=== PATIENT | male | born 1985 | race American Indian/Alaskan Native ===

== ENCOUNTER 2023-07-21 04:12 | Inpatient (IN) | payer OTHER, MEDICAID, MEDICARE, SELFPAY ==
[2023-07-21] VITALS (10 sets, daily range): BP systolic 153–197; BP diastolic 89–123; PULSE 82–93; RESP 17–95; TEMP 36.6–37.8; O2SAT 93–97
--- NOTE | 2023-07-21 05:04 | XR_ITS ---
Examination: CT abdomen and pelvis without contrast. Coronal 3-D reconstructions. Sagittal 2-D reconstructions. Date and time of exam: July 21, 2023 0525 hours INDICATIONS: Bilateral flank pain abdominal distention this week, history renal failure and dialysis for years CTDI: vol (mGy): 10.21 DLP: (mGycm): 664 Technique: Axial images of the abdomen have been obtained, 3 mm slice thickness Intravenous contrast material has not been administered. Low dose protocols were performed. One or more of the following dose reduction techniques were used; automated exposure control, adjustment of the mA and/or KV according to patient size, use of iterative reconstruction technique. Findings: Significant ascites Liver mildly irregular in contour no focal liver lesions No splenomegaly No pancreatic or adrenal mass End-stage atrophic [place] kidneys Absent gallbladder Mild small bowel ileus No definite obstruction Colonic diverticulosis Contracted urinary bladder Transverse prostate dimension 5 cm Moderate osteopenia IMPRESSION: Significant ascites Primary hepatocellular disease End-stage atrophic [place] kidneys
--- NOTE | 2023-07-21 05:05 | PD.EDRME ---
Rapid Medical Screening Exam [facility] Arrival date/time: 07/21/23 04:12 37M with history of ESRD (MWF) presents to ED with several days of worsening ab pain/fullness and N/V. Chief Complaint: Abdominal Pain Vital signs: Vital Signs Temperature 100.1 F 07/21/23 04:47 Pulse Rate 85 07/21/23 04:47 Respiratory Rate 17 07/21/23 04:47 Blood Pressure 171/89 H 07/21/23 04:47 Pulse Oximetry (%) 97 07/21/23 04:47
--- NOTE | 2023-07-21 05:53 | PRELIM_ITS ---
CT scan of the abdomen and pelvis without intravenous contrast (axial sections with sagittal, coronal and 3D reformats) July 21, 2023 at 0528 hours Clinical History: Gen abdomen pain and fullness. Tech nique: Axial sections of the abdomen and pelvis were obtained without intravenous contrast. Sagittal, coronal and 3D reformats are also provided. Comparison: December 24, 2021. Findings:There are trace b ilateral pleural effusions with bibasilar atelectasis. Both kidneys are atrophic with parenchymal thi nning, likely related to renal failure or chronic renal parenchymal disease. There is a 1 cm right re nal cortical cyst at the interpolar region. Nonspecific perinephric fat stranding is noted bilaterall y. No evidence of renal/ureteric calculus or hydroureteronephrosis. The gallbladder is surgically abs ent. No significant biliary ductal dilatation. The liver, pancreas, spleen and adrenals are unremarka ble on this noncontrast study.There are multiple colonic diverticula without evidence of diverticulit is. No evidence of bowel obstruction. The appendix is within normal limits (images [id number]). Ther e is severe ascites in the abdomen and pelvis. There is generalized anasarca of the abdominal and pel antelmo wall. There are subcentimeter mesenteric and retroperitoneal lymph nodes. There is diffuse omenta l fat stranding in the anterior abdomen.The urinary bladder is partially distended. The prostate is m ildly enlarged. No free air or fluid collection.Degenerative changes are identified in the spine. The re is disc osteophyte complex at L5-S1 causing mild spinal canal narrowing. Impression:1. Severe asci albino, likely related to renal failure. 2. Chronic renal parenchymal disease. No evidence of obstructiv e uropathy.3. No evidence of bowel obstruction or acute diverticulitis. Report Electronically Signed By: NASIMA DEL REAL 07/21/2023 5:52:58 AM [EST]
[2023-07-21 06:31] LABS: Collection Type, Urine Clean Catch
[2023-07-21 06:42] LABS: Lactate (Lactic Acid) 0.6 mMol/L (0.4-2.0)
[2023-07-21 06:47] LABS: Basophils # (Auto) 0.1 Thou/mm3 (0.0-0.2); Basophils % (Auto) 1 % (0-2.5); Eosinophils # (Auto) 0.2 Thou/mm3 (0.0-0.5); Eosinophils % (Auto) 2 % (0-10); Hematocrit 28.7 % (41.0-53.0); Immature Granulocytes % (Auto) 1 % (0-0); Immature Granulocytes Auto 0.08 Thou/mm3 (0.00-0.00); Lymphocytes # (Auto) 1.2 Thou/mm3 (1.0-4.8); Lymphocytes % (Auto) 9 % (10-50); Mean Corpuscular HGB Conc 34.8 g/dl (31.0-37.0); Mean Corpuscular Hemoglobin 30.3 pg (25.0-35.0); Mean Corpuscular Volume 87 fL (80-100); Monocytes # (Auto) 1.7 Thou/mm3 (0.0-0.8); Monocytes % (Auto) 13 % (0-12); Neutrophils # (Auto) 10.4 Thou/mm3 (1.8-7.7); Neutrophils % (Auto) 76 % (37-80); Nucleated Red Blood Cell % 0 /100 WBC (0); Platelet Count 518 Thou/mm3 (140-440); RDW Standard Deviation 44.2 fL (35.1-43.9); White Blood Count 13.8 Thou/mm3 (3.8-10.6)
--- NOTE | 2023-07-21 06:49 | PC.NURSE ---
pt to er with c/o of abd pain n/v x5 days, pt states he went to dialysis on wednesday and informed them of pain, per pt was told to come to er if pain did not improve after dialysis. pt states he feels like kidney's are pulsating. pt is a/ox3 gcs 15, call light within reach bed at lowest position, chart up for review, awaiting new orders at this time.
[2023-07-21 06:57] LABS: INR 1.2 (0.9-1.3); Prothrombin Time 12.6 Seconds (9.0-12.2)
--- NOTE | 2023-07-21 06:59 | PD.EDABDPN ---
ED Abdominal Pain RME/HPI General Chief Complaint: Abdominal Pain Stated complaint: Abd swollen Thurs,feels like kidneys are beating Time seen by provider: 07/21/23 07:07 Arrival date/time: 07/21/23 04:12 RME / HPI RME / HPI narrative: 07/21/23 04:12 37M with history of ESRD (MWF) presents to ED with several days of worsening ab pain/fullness and N/V. DR. FAJARDO MAIN ED EVALUATION 37 year old male with history of hypertension and ESRD on HD M/W/F presents to the ED for complaint of abdominal pain beginning 6 days ago. Describes pain as a fullness throbbing sensation, rated as moderate-severe. Accompanied by it feels like theres a heartbeat in my kidney , abdominal distention, nausea, decreased appetite, chills, and sweats. Mentioned he did not go to his scheduled dialysis today secondary to pain. Denies checking his temperature at home, chest pain, shortness of breath, cough, diarrhea. [employer]ist: Dr. Frautso in [place], [place] Related Data Home Medications ?Medication ?Instructions ?Recorded ?Confirmed omeprazole 20 mg capsule,delayed 20 mg PO QDAY 12/10/21 09/19/22 release clonidine HCl 0.2 mg tablet 0.2 mg PO BID 08/31/22 09/19/22 metoprolol tartrate 100 mg tablet 100 mg PO BID 08/31/22 09/19/22 Allergies Allergy/AdvReac Type Severity Reaction Status Date / Time No Known Allergies Allergy Verified 11/28/22 07:52 Review of Systems Review of Systems Narrative Review of Systems: Gen: +chills, +sweats, no weight loss EYES: No discharge, no visual changes, no pain HEENT: No ear pain, no congestion, no sore throat PULM: no shortness of breath, no cough, no congestion CV: No chest pain, no palpitations, no chest tightness GI: +nausea, +vomiting, no diarrhea, +pain, +distention, no constipation : No frequency, no urgency,? no dysuria Musc/skel: No joint pain, no back pain Skin: No rash, no ecchymosis, no lesions Neuro: No weakness, no headache Past Medical History Past Medical History CARDIAC: Positive Cardiac Disorders and Hypertension RESPIRATORY: Positive Asthma and Sleep Apnea GASTROINTESTINAL: Positive Gastrointestinal Disorders, Gall Bladder Disease and Gastroesophageal Reflux Disease GENITOURINARY: Positive Genitourinary Disorders, Renal Disease and Dialysis OTHER HISTORY: Positive Hospitalization and Chicken Pox Family History FAMILY HISTORY: Negative Family Psychiatric Problems, Family Respiratory Disorders, Family Cardiac Disorders, Family Gastrointestinal Problems, Family Cancer, Family Surgery or Family Anesthesia Reaction Surgical History SURGICAL: Positive Vascular Surgery and Endocrine Surgery Social History SMOKING STATUS: Never smoker ED Exam Narrative Physical exam: GENERAL APPEARANCE: AxOx4, no obvious distress, chronically ill appearing, ashen skin HEENT: NC, AT. MMM. EOMI, clear conjunctiva, oropharynx clear. NECK: Supple without lymphadenopathy. No stiffness or restricted ROM. HEART: Normal rate and regular rhythm, normal S1/S1, no m/r/g LUNGS: CTAB, moving air well. No crackles or wheezes are heard. ABDOMEN: Fluid distention, diffusely tender, no rebound no guarding, soft, good bowel sounds heard. BACK: No midline C/T/L spine pain or deformity, No CVAT, no obvious deformity. EXTREMITIES: Without cyanosis, clubbing or edema. MUSCULOSKELETAL: FROM of all major joints, no chest tenderness NEUROLOGICAL: Grossly nonfocal. Alert and oriented, moving all 4 extremities. CN not formally tested but appear grossly intact. Skin: Ashen skin. Warm and dry without any rash. Course Course Course Narrative: Patient made clinically stable emerged part without acute distress. He remained hungry throughout his stay here. He noted significant improvement in pain subjectively after removal of 4.7 L of ascitic fluid. He still had diffuse abdominal tenderness on exam and palpation even after removal of the ascitic fluid. We reviewed all results, analysis, management, and treatment plan patient was amenable to admission. Patient was stable upon admission Quality Measures none Orders Category Date Time Status Decision to Admit X1 Care 07/21/23 16:50 Active Insert IV NOW Care 07/21/23 05:[address] abdomen pelvis wo con Stat Exams 07/21/23 05:04 Completed US paracentesis abd w/image Stat Exams 07/21/23 07:08 Completed Albumin, Peritoneal Fluid Routine Lab 07/21/23 15:17 Completed Amylase,Peritoneal Fluid Routine Lab 07/21/23 15:17 Completed Blood Culture (Lab) Stat Lab 07/21/23 07:02 Received Body Fld Cult w Eve & Gram St Routine Lab 07/21/23 15:17 Received CBC Stat Lab 07/21/23 06:34 Completed CMP [Comprehensive Metabolic Panel] Stat Lab 07/21/23 06:34 Completed Glucose,Peritoneal Fluid Routine Lab 07/21/23 15:17 Completed INR [Prothrombin Time with INR] Stat Lab 07/21/23 06:34 Completed LDH,Peritoneal Fluid Routine Lab 07/21/23 15:17 Completed Lactate (Lactic Acid) Stat Lab 07/21/23 06:34 Completed Lipase Stat Lab 07/21/23 06:34 Completed PTT [Partial Thromboplastin Time] Stat Lab 07/21/23 06:34 Completed Peritoneal Cell Cnt/Diff Routine Lab 07/21/23 15:17 Completed Procalcitonin Stat Lab 07/21/23 06:34 Completed Protein Total,Peritoneal Fluid Routine Lab 07/21/23 15:17 Completed UA [Urinalysis] Stat Lab 07/21/23 06:03 Completed LIDO 1% 10ml SYR (Angio Only) [Xylocaine 1% 10ml] Med 07/21/23 12:35 Discontinued 10 ml .ROUTE .STK-MED ONE cefTRIAXone [Rocephin] 2 gm Med 07/21/23 15:45 Discontinued Sodium Chloride 0.9% (P) [Ns 0.9% (P)] 50 ml IV X1 Reevaluation(s) Reevaluation #1: Patient reports feeling improved but is still having abdominal pain. The ascitic fluid is very dark, Noam-Aid colored and cloudy. Will empirically start ceftriaxone 2 g IV, I have contacted the pharmacy and the cefotaxime is not available at [facility]. Pending ascitic fluid analysis. Time: 15:00 Reevaluation #2: Fluid analysis suggests SBP. Time: 16:30 Vital Signs Vital signs: Vital Signs Temperature 100.1 F 07/21/23 04:47 Pulse Rate 85 07/21/23 04:47 Respiratory Rate 17 07/21/23 04:47 Blood Pressure 171/89 H 07/21/23 04:47 Pulse Oximetry (%) 97 07/21/23 04:47 Pulse ox is 97% on room air which is adequate. Abdominal Pain MDM MDM Narrative MDM Narrative:: Mr. Dang has end-stage renal disease and large volume ascitic accumulation that appears to be infected consistent with spontaneous bacterial peritonitis. Symptomatically he feels better after large-volume removal of ascitic fluid. he will need treatment based off of diagnostic results are consistent with greater than 1500 WBCs in his ascitic fluid analysis at approximately 45% polys. Patient was started on antibiotics empirically after I was able to visualize/qualify the ascitic fluid from interventional radiology and his continued pain with palpation even after removal of total 4.7 L of infected looking ascitic fluid. IReina am scribing for and in the presence of Dr. Fajardo. Patient data External records reviewed:: [facility] previous records (I reviewed ED visit on 11/28/2022 for AV fistula complications ) Clinical information provided by:: patient Social determinants that could affect healthcare access:: none Patient has the following chronic illnesses:: Hypertension and ESRD on HD M/W/F How is presenting disease/condition affected by chronic disease/condition?: exacerbated by Evaluation data The following diagnostics were reviewed and interpreted by me:: lab results and radiology exam(s) Lab and/or radiology exams considered but not ordered:: None Interpretation Summary: Ordering Physician: Alessandro Comer PA-C Date of Service: 07/21/23 Procedure(s): CT abdomen pelvis wo con Accession Number(s): [id number] cc: Esau(Feliciano)Tiffanie PA-C; Cleve Cai MD; Alessandro Comer PA-C~ Examination: CT abdomen and pelvis without contrast. Coronal 3-D reconstructions. Sagittal 2-D reconstructions. Date and time of exam: July 21, 2023 0525 hours INDICATIONS: Bilateral flank pain abdominal distention this week, history renal failure and dialysis for years CTDI: vol (mGy): 10.21 DLP: (mGycm): 664 Technique: Axial images of the abdomen have been obtained, 3 mm slice thickness Intravenous contrast material has not been administered. Low dose protocols were performed. One or more of the following dose reduction techniques were used; automated exposure control, adjustment of the mA and/or KV according to patient size, use of iterative reconstruction technique. Findings: Significant ascites Liver mildly irregular in contour no focal liver lesions No splenomegaly No pancreatic or adrenal mass End-stage atrophic [place] kidneys Absent gallbladder Mild small bowel ileus No definite obstruction Colonic diverticulosis Contracted urinary bladder Transverse prostate dimension 5 cm Moderate osteopenia IMPRESSION: Significant ascites Primary hepatocellular disease End-stage atrophic [place] kidneys Dictated By: Cleve Cai MD Signed By: <Electronically signed by Cleve Cai MD in [place]> 07/21/23 0913 Ordering Physician: Matthew Fajardo MD Date of Service: 07/21/23 Procedure(s): US paracentesis abd w/image Accession Number(s): [id number] cc: Tiffanie Cifuentes PA-C ([facility]); Matthew Fajardo MD; Cleve Cai MD~ Examination: Ultrasound-guided paracentesis Abdominal sonogram limited Date and time of exam: July 21, 2023 1254 hours INDICATIONS: Cirrhosis, increasing ascites and abdominal distention this week Informed consent provided. A timeout was completed verifying correct patient, procedure, site, positioning, and special adequate movement if applicable. Technique: Multiple sonographic images of the abdomen have been obtained. Appropriate area for paracentesis was marked. Local anesthesia is obtained with 1% lidocaine. Yueh catheter is successfully introduced. Findings: Abdominal sonographic images demonstrate sufficient ascitic fluid for paracentesis. After placing the Yueh catheter, 4700 cc of fluid were successfully removed. During and after completion of the procedure the patient appear in satisfactory and stable condition with no complications observed. Estimated blood loss 0 cc Impression: Abdominal ascites Successful ultrasound-guided paracentesis as described above Dictated By: Cleve Cai MD Signed By: <Electronically signed by Cleve Cai MD in [place]> 07/21/23 1444 Medications / Prescriptions Medications or Prescriptions considered but not ordered:: None Medication administrations:: Medication Administration History Discontinued Medications Ceftriaxone Sodium 2 gm/ (Sodium Chloride) 50 mls @ 100 mls/hr IV X1 ONE Stop: 07/21/23 16:14 Last Infusion: 07/21/23 16:45 Dose: Infused Documented By: Admin: 07/21/23 16:09 Dose: 100 mls/hr Documented By: SR Lidocaine HCl (Lidocaine 1% 10 Ml Syringe (Angio Pyxis Only)) Confirm Administered Dose 10 ml .ROUTE .STK-MED ONE Stop: 07/21/23 12:36 See above Consultations Consultation(s) initiated? (list below): No Diagnosis Differential diagnosis abdominal pain: abdominal pain and other (Spontaneous bacterial peritonitis, ascites ) Most likely diagnosis given after review of the tests above:: Spontaneous bacterial peritonitis, end-stage renal disease Admission Indicated Admission indicated?: indicated Admission Request Was there a request for admission?: Yes Admission Attestation Admission request attestation: Discussed case with [Dr. Shaw] from Hospitalist service regarding admission. Discussed patients ED course, exam findings, labs, and radiology results. The Hospitalist [agrees] to accept the patient for admission. Disposition Plan Disposition Plan: Admit Critical Care Time Critical Care Time Critical Care Time: Yes Total Critical Care Time (min.): 35 Attestation: Excluding billable procedures for the right response, analysis, management, treatment, and documentation event the very possible risk of cardiovascular decompensation and or Discharge Plan Plan Patient Disposition: Admit Acute Care w/in Hospital Prescriptions/Referrals Prescriptions/Med Rec: No Action omeprazole 20 mg capsule,delayed release(DR/EC) 20 mg PO QDAY metoprolol tartrate 100 mg tablet 100 mg PO BID Patient Comments: TAKE 1 TABLET BY MOUTH TWICE A DAY WITH FOOD clonidine HCl 0.2 mg tablet 0.2 mg PO BID Patient Comments: TAKE 1 TABLET BY MOUTH TWICE A DAY Referrals: Tiffanie Cifuentes PA-C ([facility]) [Primary Care Provider] - In 1 week Problem List Clinical Impression: SBP (spontaneous bacterial peritonitis), End-stage renal disease (ESRD), Ascites Patient/Caregiver Discharge Instructions Education Materials: Paracentesis Print Language: Martiniquais Stand Alone Forms: Patient Portal Info Letter
--- NOTE | 2023-07-21 07:08 | XR_ITS ---
Examination: Ultrasound-guided paracentesis Abdominal sonogram limited Date and time of exam: July 21, 2023 1254 hours INDICATIONS: Cirrhosis, increasing ascites and abdominal distention this week Informed consent provided. A timeout was completed verifying correct patient, procedure, site, positioning, and special adequate movement if applicable. Technique: Multiple sonographic images of the abdomen have been obtained. Appropriate area for paracentesis was marked. Local anesthesia is obtained with 1% lidocaine. Yueh catheter is successfully introduced. Findings: Abdominal sonographic images demonstrate sufficient ascitic fluid for paracentesis. After placing the Yueh catheter, 4700 cc of fluid were successfully removed. During and after completion of the procedure the patient appear in satisfactory and stable condition with no complications observed. Estimated blood loss 0 cc Impression: Abdominal ascites Successful ultrasound-guided paracentesis as described above
--- NOTE | 2023-07-21 07:14 | PC.NURSE ---
Pt alert upon assumption of care, reports having discomfort in his abdomen, pt will be going for procedure. Call romo and personal belongings in reach.
[2023-07-21 07:23] LABS: Alanine Aminotransferase 9 U/L (10-49); Albumin, Serum 3.7 gm/dL (3.5-5.0); Alkaline Phosphatase 531 U/L (46-116); Anion Gap 10 (7-16); Aspartate Amino Transferase < 10 U/L (0-34); BUN/Creatinine Ratio 7 Ratio (12-20); Bilirubin,Total 2.1 mg/dL (0.3-1.2); Blood Urea Nitrogen 63 mg/dL (9-23); Calcium 8.6 mg/dL (8.3-10.6); Calcium (Corrected) 8.8 mg/dL (8.5-10.1); Carbon Dioxide 26.9 mMol/L (20.0-31.0); Chloride 98 mMol/L (98-107); Creatinine (Component) 9.2 mg/dL (0.6-1.3); Globulin 3.8 gm/dL (2.3-3.5); Glucose 87 mg/dL (74-106); Lipase 37 U/L (12-53); Osmolality,Calculated 287 (275-295); Potassium 4.2 mMol/L (3.4-5.1); Procalcitonin 3.88 ng/ml (0.0-0.49); Sodium 135 mMol/L (136-145); Total Protein 7.5 gm/dL (5.7-8.2); eGFR 7 See Note
[2023-07-21 07:28] LABS: Bilirubin,Urine Negative (Negative); Blood,Urine Negative (Negative); Clarity,Urine Clear (Clear/Hazy); Color,Urine Lt-Yellow (Lt Yel-Yel); Glucose, Urine Negative (Negative); Ketones,Urine Negative (Negative); Leukocyte Esterase,Urine Negative (Negative); Nitrite,Urine Negative (Negative); PH,Urine 7.5 (5.0-7.0); Protein,Urine 1+ (Neg - Trace); RBC,Urine 1 /hpf (0-3); Specific Gravity,Urine 1.005 (1.001-1.035); Squamous Epithelial Cell,Urine < 1 /hpf (0-5); Urobilinogen,Urine Negative mg/dL (0.0-1.0); WBC,Urine < 1 /hpf (0-5)
--- NOTE | 2023-07-21 11:58 | PC.NURSE ---
Pt resting w/eyes closed, even rise and fall of chest w/breathing. VSS on tele. call romo remains in reach.
--- NOTE | 2023-07-21 15:43 | PC.NURSE ---
Pt medicated for pain and nausea. Family remains at bedside attentive to pt, VSS on tele. Call romo remains in reach
[2023-07-21 15:53] LABS: Peritoneal Fluid WBC 1560 /cmm
[2023-07-21] MEDS: cefTRIAXone 2 GM in SODIUM CHLORIDE 0.9% (P) 50 ML IV (16:09)
[2023-07-21 16:14] LABS: Peritoneal Fluid Appearance Hazy; Peritoneal Fluid Color Yellow; Peritoneal Fluid Mononuclear 54 %; Peritoneal Fluid Polynuclear 46 %; RBC,Peritoneal Fluid 1000 /cmm
[2023-07-21 16:15] LABS: Albumin, Peritoneal Fluid 2.1 gm/dL; Amylase,Peritoneal Fluid 23 IU/L; Glucose,Peritoneal Fluid 76 mg/dL; LDH,Peritoneal Fluid 148 IU/L; Protein Total,Peritoneal Fluid 4 g/dL
--- NOTE | 2023-07-21 16:56 | XR_ITS ---
Examination: Abdomen sonogram, Limited Date and time of exam: July 21, 2023 1911 hrs. Indications: Elevated bilirubin today Technique: Real-time taylor scale transabdominal sonographic images of the upper abdomen obtained. Findings: Absent gallbladder Enlarged common bile duct 0.9 cm no definite stones Pancreatic head 3.4 cm Liver 17.9 cm lobular contour no focal liver lesions Mild ascites Normal hepatopedal portal venous flow Patent IVC Impression: Enlarged common bile duct 0.9 cm no definite stones If the bilirubin is elevated, consider MRCP follow-up to exclude common bile duct stones and/or stricture Moderate hepatomegaly cirrhosis no focal liver lesions Mild ascites
--- NOTE | 2023-07-21 18:27 | ESHP_ITS ---
<Statement entered by Bob Shaw MD - 07/29/23 11:02> Attending attestation: I reviewed above note and agree with findings and plans. I have also personally examined the patient with medicine team and went over assessment and plan with medical team including pr intern and resident physician. <Statement entered by Lee Suggs MD - 07/22/23 11:57> Patient coming in with 1 week of abdominal pain discomfort. Patient had paracentesis done with peritoneal fluid appearing hazy. Patient started on Rocephin for SBP, pending culture. Will continue treating patient with IV antibiotics and await culture results. Documentation for date of: 07/21/23 HPI History of Present Illness History of present illness: Patient is 37-year-old male with past medical history of hypertension, ESRD on Wednesday/Wednesday/Wednesday, presented to ED with chief complaint of worsening abdominal pain and fullness. Discomfort started about 6 days ago, described as fullness, rated as moderate to severe. Patient also endorsed nauseia, decreased appetite, chills, sweats. Patient mentioned that he missed his scheduled dialysis today due to pain discomfort presented to ED. Otherwise patient denied any chest pain, shortness of breath or any other associated. Upon presentation patient was hypertensive with blood pressure 171/89, saturating on room air 97%. This revealed leukocytosis with WBC 13.8, anemic with hemoglobin of 10.0, 635, BUN 63, creatinine 9.2, EGFR 7, T. bili was 2.1, ALP 531, Pro-Jarek was 3.88. CT pelvis/abdomen revealed significant ascites, primary hepatocellular disease, end-stage atrophic [place] kidneys. Successful ultra-stiff paracentesis was done in ED. 4.7 liters of infected looking ascitic fluid was removed. Fluid analysis revealed WBC 1560, with PMA 54, suggestive of SBPs. Patient on ceftriaxone in ED. Patient met SIRS 2/4 criteria and was admitted for sepsis secondary to SBP's. Review of Systems Review of Systems Narrative Review of Systems: Narrative Review of Systems: GENERAL: Denies fevers/chills or diaphoresis. HEENT: Denies headache, Denies visual/hearing changes CARDIO: Denies chest pain PULM: Denies SOB MSK/EXT/SKIN: Denies joint/skeletal/muscle pain The rest of review of system is otherwise negative except what is mentioned above Past Medical History Past Medical History CARDIAC: Positive Cardiac Disorders and Hypertension RESPIRATORY: Positive Asthma (NO INHALER) GASTROINTESTINAL: Positive Gastrointestinal Disorders and Gall Bladder Disease (FOR THIS PROC) GENITOURINARY: Positive Dialysis OTHER HISTORY: Positive Chicken Pox Social History SMOKING STATUS: Never smoker Travel History EBOLA RISK: No Exam Vital Signs Temp Pulse Resp BP Pulse Ox O2 Del Method 98.9 F 89 18 164/99 H 95 Room Air 07/21/23 17:59 07/21/23 17:59 07/21/23 17:59 07/21/23 17:59 07/21/23 17:59 07/21/23 17:59 Narrative Exam GENERAL: no acute distress, AAO x3, HEENT: Head AT/ NC. Mucous membranes moist. PERRL. NECK: Supple, no lymphadenopathy, no carotid bruits. CARDIOVASCULAR: RRR. Normal S1/S2, No m/r/g. No pitting edema of bilateral LEs. RESPIRATORY: CTAB. No wheezing, rhonchi, crackles. GASTROINTESTINAL: Abdomen soft, mildlydistended, mildly tender, no palpable masses. Bowel sounds present in all 4 quadrants. MUSCULOSKELETAL:? No cyanosis or edema, no visible joint swelling.AV fistula noted on left arm NEUROLOGICAL: No focal deficits. Sensation intact, symmetric. PSYCHIATRIC: Awake and alert, not agitated, normal mood and affect. INTEGUMENTARY: No obvious rashes, no jaundice, normal turgor multiple blck spots on BL LE. Results: Labs 07/21/23 06:34 07/21/23 06:34 Labs: Short CBC 07/21/23 Range/Units 06:34 WBC 13.8 H (3.8-10.6) Thou/mm3 Hgb 10.0 L (13.5-16.0) g/dL Hct 28.7 L (41.0-53.0) % Plt Count 518 H (140-440) Thou/mm3 BMP 07/21/23 06:34 Sodium 135 L Potassium 4.2 Chloride 98 Carbon Dioxide 26.9 BUN 63 H Creatinine 9.2 H* Glucose 87 Calcium 8.6 Liver Function 07/21/23 Range/Units 06:34 Total Bilirubin 2.1 H (0.3-1.2) mg/dL AST < 10 (0-34) U/L ALT 9 L (10-49) U/L Alkaline Phosphatase 531 H (46-116) U/L Albumin 3.7 (3.5-5.0) gm/dL Urine 07/21/23 Range/Units 06:03 Urine Color Lt-Yellow (Lt Yel-Yel) Urine Clarity Clear (Clear/Hazy) Urine pH 7.5 H (5.0-7.0) Ur Specific [place] 1.005 (1.001-1.035) Urine Protein 1+ A (Neg - Trace) Urine Glucose (UA) Negative (Negative) Quality Measures Quality Measures none Medications Home Medications and Allergies Home Medications ?Medication ?Instructions ?Recorded ?Confirmed ?Type omeprazole 20 mg capsule,delayed 20 mg PO QDAY 12/10/21 09/19/22 History release clonidine HCl 0.2 mg tablet 0.2 mg PO BID 08/31/22 09/19/22 History metoprolol tartrate 100 mg tablet 100 mg PO BID 08/31/22 09/19/22 History Allergies Allergy/AdvReac Type Severity Reaction Status Date / Time No Known Allergies Allergy Verified 11/28/22 07:52 Visit Medications Acetaminophen (Acetaminophen 325 Mg Tablet) 650 mg PO Q6H PRN PRN Reason: PAIN OR FEVER > 101 Stop: 08/20/23 18:14 Heparin Sodium (Porcine) (Heparin Sod Inj 5000 Unit/Ml Vial) 5,000 unit SC Q8HR VERONICA Stop: 08/04/23 21:59 Ceftriaxone Sodium/Dextrose (Rocephin/D5w 2gm) 2 gm in 50 mls @ 100 mls/hr IV QDAY VERONICA Stop: 07/29/23 08:59 Ondansetron HCl (Ondansetron Inj 2 Mg/Ml Vial 2 Ml) 4 mg IV Q6H PRN; Protocol PRN Reason: NAUSEA OR VOMITING Stop: 08/20/23 18:14 Pantoprazole Sodium (Pantoprazole 40 Mg Tablet) 40 mg PO QDAY VERONICA Stop: 08/21/23 08:59 Discontinued Medications Ceftriaxone Sodium 2 gm/ (Sodium Chloride) 50 mls @ 100 mls/hr IV X1 ONE Stop: 07/21/23 16:14 Last Infusion: 07/21/23 16:45 Dose: Infused Assessment & Plan Plan Patient is 37-year-old male with past medical history of hypertension, ESRD on Wednesday/Wednesday/Wednesday, presented to ED with chief complaint of worsening abdominal pain and fullness. Discomfort started about 6 days ago, described as fullness, rated as moderate to severe. Patient also endorsed nauseia, decreased appetite, chills, sweats. Patient mentioned that he missed his scheduled dialysis today due to pain discomfort presented to ED. Otherwise patient denied any chest pain, shortness of breath or any other associated. Upon presentation patient was hypertensive with blood pressure 171/89, saturating on room air 97%. This revealed leukocytosis with WBC 13.8, anemic with hemoglobin of 10.0, 635, BUN 63, creatinine 9.2, EGFR 7, T. bili was 2.1, ALP 531, Pro-Jarek was 3.88. CT pelvis/abdomen revealed significant ascites, primary hepatocellular disease, end-stage atrophic [place] kidneys. Successful ultra-stiff paracentesis was done in ED. 4.7 liters of infected looking ascitic fluid was removed. Fluid analysis revealed WBC 1560, with PMA 54, suggestive of SBPs. Patient on ceftriaxone in ED. Patient met SIRS 2/4 criteria and was admitted for sepsis secondary to SBP's.. #Sepsis secondary due to SBP's #SBP #Ascites in the setting of possible liver disease s/p paracentesis #Abdominal pain, discomfort, increased abdominal girth CT abdomen/pelvis revealed significant ascites, primary hepatocellular disease. Patient had successful ultrasound-guided paracentesis in ED, 4.7 L of hazy fluid was removed, fluid analysis revealed WBC 1506 RBC 1000, PMC 54 percent, LDH 148. 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 Cr 9.2,BUN 63,eGFR 7, K wnl -nephrology was consulted, we will restart HD session in the hospital -patient will have HD early tmw -recs are appreciated #Hyperbilirubinemia #primary hepatocellular disease based on CT patient had cholecystectomy T.bill 2.1, ALT 531 US Liver pending to r/o obstruction -continue monitor #hypertension restarted home meds -clonidine 0.2 BID -Hydralazyne 100 BID -hydralazine 10 PRN -continue to monitor Disposition:medsurge DVT prophylaxis: heparin GI prophylaxis: PPi Diet: renal Lines: PIV CODE STATUS:Full code Patient care was discussed with senior resident physician and attending physician Dr. Colin Jalloh MD PGY-1 I have carefully reviewed this document. Due to imperfections in the voice software, there could be grammatical errors including phonetic/typographic errors. This in no way compromises the medical care the patient is receiving
[2023-07-21] MEDS: cloNIDine HCL 0.1 MG TABLET 0.2 MG PO (21:07)
[2023-07-21] MEDS: hydrALAZINE HCL 25 MG TABLET 100 MG PO (21:08)
[2023-07-21] MEDS: ALBUMIN HUMAN 25% IVPB 25 GM/100 ML BTL IV ×2 (21:09→23:34)
[2023-07-22] VITALS (27 sets, daily range): BP systolic 118–170; BP diastolic 71–104; PULSE 83–117; RESP 18–96; TEMP 36.6–37.4; O2SAT 94–98; BMI 23.3
[2023-07-22 05:45] LABS: Basophils # (Auto) 0.1 Thou/mm3 (0.0-0.2); Basophils % (Auto) 1 % (0-2.5); Eosinophils # (Auto) 0.3 Thou/mm3 (0.0-0.5); Eosinophils % (Auto) 2 % (0-10); Hematocrit 26.1 % (41.0-53.0); Immature Granulocytes % (Auto) 1 % (0-0); Immature Granulocytes Auto 0.09 Thou/mm3 (0.00-0.00); Lymphocytes # (Auto) 1.1 Thou/mm3 (1.0-4.8); Lymphocytes % (Auto) 9 % (10-50); Mean Corpuscular HGB Conc 33.3 g/dl (31.0-37.0); Mean Corpuscular Hemoglobin 29.7 pg (25.0-35.0); Mean Corpuscular Volume 89 fL (80-100); Monocytes # (Auto) 1.6 Thou/mm3 (0.0-0.8); Monocytes % (Auto) 13 % (0-12); Neutrophils # (Auto) 9.1 Thou/mm3 (1.8-7.7); Neutrophils % (Auto) 74 % (37-80); Nucleated Red Blood Cell % 0 /100 WBC (0); Platelet Count 583 Thou/mm3 (140-440); Red Blood Count 2.93 Miln/mm3 (4.50-5.90); White Blood Count 12.2 Thou/mm3 (3.8-10.6)
[2023-07-22 05:48] LABS: Hemoglobin 8.7 g/dL (13.5-16.0)
[2023-07-22] MEDS: HEPARIN SOD INJ 5000 UNIT/ML VIAL SC ×3 (06:16→21:27)
[2023-07-22] MEDS: ACETAMINOPHEN 325 MG TABLET 650 MG PO (06:23)
[2023-07-22 06:52] LABS: Alanine Aminotransferase < 7 U/L (10-49); Albumin, Serum 3.3 gm/dL (3.5-5.0); Alkaline Phosphatase 452 U/L (46-116); Anion Gap 11 (7-16); Aspartate Amino Transferase < 8 U/L (0-34); BUN/Creatinine Ratio 7 Ratio (12-20); Bilirubin,Total 1.8 mg/dL (0.3-1.2); Blood Urea Nitrogen 74 mg/dL (9-23); Calcium 8.4 mg/dL (8.3-10.6); Carbon Dioxide 26.5 mMol/L (20.0-31.0); Chloride 98 mMol/L (98-107); Creatinine (Component) 10.5 mg/dL (0.6-1.3); Estimated Creatinine Clearance 11.2 mL/min (>60); Globulin 3.2 gm/dL (2.3-3.5); Glucose 86 mg/dL (74-106); Magnesium 1.8 mg/dL (1.6-2.6); Osmolality,Calculated 291 (275-295); Phosphorous 6.1 mg/dL (2.4-5.1); Potassium 4.5 mMol/L (3.4-5.1); Sodium 135 mMol/L (136-145); Thyroid Stimulating Hormone 1.44 uIU/mL (0.55-4.78); Total Protein 6.5 gm/dL (5.7-8.2); eGFR 6 See Note
--- NOTE | 2023-07-22 08:00 | PC.NURSE ---
pt transferred to dialysis by Edwin MARCUM, pt stable aaox4.
--- NOTE | 2023-07-22 08:47 | PC.NURSE ---
Pt was seen and examined by Dr. Tavarez while on dialysis. MD ordered to increased UF goal to 3L as tolerated. Will monitor
[2023-07-22] MEDS: EPOETIN ALFA-EPBX INJ 10,000 UNIT/ML VIAL (ESRD) 10000 UNIT IV (09:01)
--- NOTE | 2023-07-22 09:01 | PD.RESCONSUL ---
HPI Data of Consult Patient: new to practice Consult date: 07/22/23 Requesting Physician: Bob Shaw MD Admitting Provider: Bob Shaw MD Attending Provider: Bob Shaw MD Primary Care Provider: Tiffanie Cifuentes([facility])DAVID Consult Narrative Reason for consult: ESRD requiring inpatient hemodialysis History of present illness: Mr Dang is a 37 YO M with history of hypertension and end-stage renal disease(secondary to hypertensive nephrosclerosis-under the care of Dr. Frausto in [place]) who presented to [facility] emergency department 07/21/2023 complaining of generalized swelling and worsening abdominal pain over the past week, associated with nausea, anorexia, chills and diaphoresis. The patient reports missing his Thursday 07/20 HD session due to his presenting complaint. On presentation, the patient was afebrile with temperature 100.1F, HR 89-106, RR 17-20, hypertensive 171/89mmHg. Initial labs demonstrated leukocytosis (WBC 13.8), anemia (hgb 10.0), with thrombocytosis (plt 518); chemistry remarkable for BUN 63 and sCr 9.2. LFTs with TB 2.1 and alk phos 531, AST and ALT <10. Procalcitonin elevated at 3.88. Nephrology service is consulted for management of anasarca with inpatient hemodialysis in setting of ESRD. 07/22/2023 Patient is seen on dialysis unit, resting comfortably. He is s/p 4.7L fluid removal during paracentesis and 50mg albumin replacement and broad spectrum antibiotic coverage with ceftriaxone 2g daily for spontaneous bacterial peritonitis, and reports abdominal pain is improved this morning. Peritoneal fluid analysis demonstrates 717 PMNs supporting SBP diagnosis, culture remains pending. Morning labs: WBC 12.2, Hgb 8.7, plt 583; Na 135, K 4.5, BUN 74, sCr 10.5, gluc 86. TB 1.8 and alkPhos 452. cc:: cc: Bob Shaw MD Review of Systems Review of Systems Systems Reviewed: All systems reviewed, normal except as documented Past Medical History Past Medical History NEUROLOGIC: Negative Neurological Disorders or Seizures CARDIAC: Positive Cardiac Disorders and Hypertension; Negative Congestive Heart Failure RESPIRATORY: Positive Respiratory Disorders, Asthma and Sleep Apnea; Negative Chronic Obstructive Pulmonary Disease (COPD) GASTROINTESTINAL: Positive Gastrointestinal Disorders, Gall Bladder Disease and Gastroesophageal Reflux Disease; Negative Hepatitis GENITOURINARY: Positive Genitourinary Disorders, Renal Disease and Dialysis MUSCULOSKELETAL: Negative Musculoskeletal Disorders or Carpal Tunnel Syndrome ENT: Negative Cataracts ENDOCRINE: Negative Endocrine Disorders, Diabetes Mellitus Type 1 or Diabetes Mellitus Type 2 HEMATOLOGIC: Negative Blood Disorders PSYCHO/SOCIAL: Negative Depression or Anxiety OTHER HISTORY: Positive Hospitalization and Chicken Pox; Negative Autoimmune Disease, Down Syndrome, Developmental Delay, Shingles, Falls, Blood Transfusions, Blood Transfusion Reaction, Anesthesia Reactions, Organ Transplant, Chemotherapy, Radiation Therapy, Hyperbaric Therapy, MRSA, VRSA, Vancomycin-Resistant Enterococci, Human Immunodeficiency Virus (HIV), Measles, Mumps, Rubella ([place] Measles), Pertussis, Clostridium Difficile or Cancer Family History FAMILY HISTORY: Negative Family Psychiatric Problems, Family Respiratory Disorders, Family Cardiac Disorders, Family Gastrointestinal Problems, Family Cancer, Family Surgery or Family Anesthesia Reaction Surgical History SURGICAL: Positive Abdominal Surgery; Negative Cardiac Surgery, Open Heart Surgery, Coronary Artery Bypass Graft, Valve Replacement, Vascular Surgery, Coronary Stent, Cardiac Catheterization, Pacemaker, Angiogram, Auto Implanted Cardiovert Defib, Carotid Endarterectomy, Endocrine Surgery, Thyroidectomy, Ear Surgery, Tympanostomy Tube, Eye Surgery, Nose Surgery, Oral Surgery, Tonsillectomy, Adenoidectomy, Cochlear Implant, Corneal Transplant, Throat Surgery, Tracheostomy, Gastric Bypass Surgery, Gastrostomy, Bowel Surgery, Nephrectomy, Transurethral Resection, Joint Replacement, Amputation, Open Reduction Internal Fixation, Arthroscopy, Neurologic Surgery, Brain Shunt, Mastectomy, Lumpectomy, Hysterectomy, Tubal Ligation, Section, Vasectomy or Organ Transplant Social History SMOKING STATUS: Never smoker Travel History EBOLA RISK: No Exam Vital Signs Temp Pulse Resp BP Pulse Ox O2 Del Method 98.9 F 92 18 160/93 H 96 Room Air 07/22/23 07:39 07/22/23 08:45 07/22/23 08:40 07/22/23 08:45 07/22/23 07:39 07/22/23 04:00 Narrative Exam General: AAO. NAD. Appears stated age. Currently seen on dialysis HEENT: NC,AT. EOMI grossly intact. MMM. Neck: Supple. Trachea is midline. Chest: Symmetric chest expansion. Cardiac: RRR. Normal S1 and S2. No M/R/G. Resp: No increased work of breathing. No adventitious lung sounds. Abd: Soft, mildly tender diffusely, mildly distended. Extrem: Atraumatic in appearance without deformity. AVF LUE. Skin: Warm, dry. Left AV fistula cannulated Neuro: AAO. Moves all 4. No deficit of speech. CNII-XII grossly intact. Psych: Appropriate mood with reactive and congruent affect. Results Labs 07/24/23 04:58 07/24/23 04:58 Labs: Short CBC 07/22/23 Range/Units 04:31 WBC 12.2 H (3.8-10.6) Thou/mm3 Hgb 8.7 L (13.5-16.0) g/dL Hct 26.1 L (41.0-53.0) % Plt Count 583 H D (140-440) Thou/mm3 BMP 07/22/23 04:31 Sodium 135 L Potassium 4.5 Chloride 98 Carbon Dioxide 26.5 BUN 74 H Creatinine 10.5 H* D Glucose 86 Calcium 8.4 Liver Function 07/22/23 Range/Units 04:31 Total Bilirubin 1.8 H (0.3-1.2) mg/dL AST < 8 (0-34) U/L ALT < 7 L (10-49) U/L Alkaline Phosphatase 452 H D (46-116) U/L Albumin 3.3 L (3.5-5.0) gm/dL Quality Measures Quality Measures none Medications Home Medications and Allergies Home Medications ?Medication ?Instructions ?Recorded ?Confirmed ?Type omeprazole 20 mg capsule,delayed 20 mg PO QDAY 12/10/21 07/21/23 History release clonidine HCl 0.2 mg tablet 0.2 mg PO BID 08/31/22 07/21/23 History metoprolol tartrate 100 mg tablet 100 mg PO BID 08/31/22 07/21/23 History hydralazine 100 mg tablet 100 mg PO BID 07/21/23 07/21/23 History Allergies Allergy/AdvReac Type Severity Reaction Status Date / Time No Known Allergies Allergy Verified 11/28/22 07:52 Visit Medications Acetaminophen (Acetaminophen 325 Mg Tablet) 650 mg PO Q6H PRN PRN Reason: PAIN OR FEVER > 101 Stop: 08/20/23 18:14 Last Admin: 07/22/23 06:23 Dose: 650 mg Clonidine (Clonidine Hcl 0.1 Mg Tablet) 0.2 mg PO BID VERONICA Stop: 08/20/23 20:59 Last Admin: 07/21/23 21:07 Dose: 0.2 mg Heparin Sodium (Porcine) (Heparin Sod Inj 5000 Unit/Ml Vial) 5,000 unit SC Q8HR VERONICA Stop: 08/04/23 21:59 Last Admin: 07/22/23 06:16 Dose: 5,000 unit Hydralazine HCl (Hydralazine Inj 20 Mg/Ml Vial) 10 mg IV Q6H PRN PRN Reason: hypertension Stop: 08/20/23 18:44 Hydralazine HCl (Hydralazine Hcl 25 Mg Tablet) 100 mg PO BID VERONICA Stop: 08/20/23 20:59 Last Admin: 07/21/23 21:08 Dose: 100 mg Ceftriaxone Sodium 2 gm/ (Sodium Chloride) 50 mls @ 100 mls/hr IV QDAY VERONICA Stop: 07/29/23 08:59 Ondansetron HCl (Ondansetron Inj 2 Mg/Ml Vial 2 Ml) 4 mg IV Q6H PRN; Protocol PRN Reason: NAUSEA OR VOMITING Stop: 08/20/23 18:14 Pantoprazole Sodium (Pantoprazole 40 Mg Tablet) 40 mg PO QDAY [facility] Stop: 08/21/23 08:59 Discontinued Medications Epoetin Keith (Epoetin Keith-Epbx Inj 10,000 Unit/Ml Vial (Esrd)) 10,000 unit IV X1 ONE Stop: 07/22/23 09:01 Ceftriaxone Sodium 2 gm/ (Sodium Chloride) 50 mls @ 100 mls/hr IV X1 ONE Stop: 07/21/23 16:14 Last Infusion: 07/21/23 16:45 Dose: Infused Albumin Human (Albuminar-25 Ivpb) 25 gm in 100 mls @ 100 mls/hr IV Q1H VERONICA Stop: 07/21/23 20:29 Last Admin: 07/21/23 23:34 Dose: 100 mls/hr Assessment & Plan Plan Mr Dang is a 37 YO M hx HTN and ESRD and likely new diagnosis of liver disease who presents with ascites and likely SBP, admitted for management of same. S/p paracentesis 07/20 with >700 PMNs, culture pending. On broad spectrum coverage with ceftriaxone 2g daily. Nephrology is consulted for management of inpatient HD and patient's fluid overload. #Anasarca / abdominal ascites #Sepsis #Spontaneous bacterial peritonitis, pending culture #Likely newly dx liver cirrhosis CT Abd/pelvis demonstrated significant ascites, liver mildly irregular in contour no focal liver lesions. Liver US demonstrated enlarged common bile duct 0.9 cm no definite stones and moderate hepatomegaly, cirrhosis, no focal liver lesions s/p paracentesis with 4.7L fluid removal and replacement of 50g albumin 07/20. pending fluid culture, blood cultures NG@24h. on ceftriaxone 2g daily broad spectrum empiric coverage. MELD-Na 26 points portends 14-15% estimated 90-day mortality. MDF 11.3 and GAHS 6 are reassuring prognostically for possible hepatitis. - We will manage fluid status with HD, ultrafiltrate removal goal of 2.5-3L today as patient can tolerate. - Continue rest of SBP management as per primary team. #ESRD on HD M/W/ #Hyperphosphatemia Missed regularly scheduled Wednesday session on 07/20 - Make-up HD session this morning, planning UF goal -2.5 to -3L given ascites. Will continue regularly scheduled M// schedule tomorrow. - Renally dose medications - Strictly monitor I/Os - If patient has residual urine ouput, avoid nephrotoxic agents - Daily renal panel #Chronic normocytic anemia secondary to ESRD - epoetin keith 10,000u given today during HD #Hypertension - Continue home regimen and monitor patient's BP Thank you for allowing us to participate in this patient's care. The patient was seen, examined, and discussed with attending checker bakery products Dr Corby Venegas PGY1 Attending Provider Attestation/Addendum Patient currently seen and examined with resident physician Dr. Venegas. Note reviewed, agree with findings and recommendations. Patient currently seen on dialysis. Tolerating dialysis without any problems. Hemodialysis for 3 hours, 2K, ultrafiltration 2-3 L, Epogen 6000, no heparin ordered. Plan of care discussed with the dialysis nurse. Please see dialysis flowsheet for further details. Blood pressure on the higher side. He seems to be very fatigued and tired. Medication, labs reviewed. Thank you Dr. Shaw for allowing me to participate in the care of Mr. Dang
[2023-07-22 09:20] LABS: Hepatitis A Antibody IgM Non Reactive (Non React); Hepatitis B Core Antibody IgM Non Reactive (Non React); Hepatitis B Surface Ab Reactive (Immune) (Immune); Hepatitis B Surface Antigen Non Reactive (Non React); Hepatitis C Antibody Non Reactive (Non React)
[2023-07-22] MEDS: hydrALAZINE HCL 25 MG TABLET 100 MG PO ×2 (12:04→20:45)
[2023-07-22] MEDS: cloNIDine HCL 0.1 MG TABLET 0.2 MG PO ×2 (12:05→20:45)
[2023-07-22] MEDS: PANTOPRAZOLE 40 MG TABLET PO (12:06)
[2023-07-22] MEDS: cefTRIAXone 2 GM in SODIUM CHLORIDE 0.9% (P) 50 ML IV (12:06)
--- NOTE | 2023-07-22 12:28 | PC.NURSE ---
Dialysis completed for 3 hrs, tolerated well. Pt awake, A/O x4, no complaint of pain. Respiration even and unlabored O2 sat 98% room air. Able to removed 2800 ml of fluid net. Post tx BP 166/98, HR 90, Temp 98.7. Pt back in his room. Call light within reached. Pressure dressing on left upper arm AV fistula clean/dry/intact. No bleeding. Please remove pressure dressing around 1330. Report given to La MARCUM.
--- NOTE | 2023-07-22 12:34 | ESPR_ITS ---
<Statement entered by Bob Shaw MD - 07/29/23 11:03> Attending attestation: I reviewed above note and agree with findings and plans. I have also personally examined the patient with medicine team and went over assessment and plan with medical team including internet sales manager and resident physician. <Statement entered by Lee Suggs MD - 07/22/23 14:39> Patient seen and assessed at bedside during dialysis. Patient currently feeling slightly better and only has abdominal fullness at this time. Patient reports having kidney disease since . Patient unsure when liver disease began. Team will try and obtain medical records from PCP. Will continue with IV Rocephin for now for SBP. Pending cultures. Documentation for date of: 07/22/23 Subjective Subjective Interval history: Patient was seen and examined at bedside. No acute overnight events. Early in AM patient had HD . Waiting for peritoneal fluid cultures, BC -in 24 hours. Continue treatment with Abx, follow up with culture. US liver did not reveal any obstraction,Enlarged common bile duct 0.9 cm no definite stones, showed mild cirrhosis, will request records from PCP. Exam Vital Signs Temp Pulse Resp BP Pulse Ox O2 Del Method 98.7 F 91 18 166/98 H 98 Room Air 07/22/23 10:48 07/22/23 12:05 07/22/23 10:48 07/22/23 12:05 07/22/23 10:48 07/22/23 04:00 Narrative Exam GENERAL: no acute distress, AAO x3, HEENT: Head AT/ NC. Mucous membranes moist. PERRL. NECK: Supple, no lymphadenopathy, no carotid bruits. CARDIOVASCULAR: RRR. Normal S1/S2, No m/r/g. No pitting edema of bilateral LEs. RESPIRATORY: CTAB. No wheezing, rhonchi, crackles. GASTROINTESTINAL: Abdomen soft, mildlydistended, mildly tender, no palpable masses. Bowel sounds present in all 4 quadrants. MUSCULOSKELETAL:? No cyanosis or edema, no visible joint swelling.AV fistula noted on left arm NEUROLOGICAL: No focal deficits. Sensation intact, symmetric. PSYCHIATRIC: Awake and alert, not agitated, normal mood and affect. INTEGUMENTARY: No obvious rashes, no jaundice, normal turgor multiple black spots on BL LE. Objective Labs 07/22/23 04:31 07/22/23 04:31 Labs: Laboratory Results - last 24 hr 07/21/23 07/22/23 07/22/23 15:17 04:31 08:05 WBC 12.2 H RBC 2.93 L Hgb 8.7 L Hct 26.1 L MCV 89 MCH 29.7 MCHC 33.3 RDW Std Deviation 46.0 H Plt Count 583 H D Neut % (Auto) 74 Lymph % (Auto) 9 L [place] % (Auto) 13 H Eos % (Auto) 2 Baso % (Auto) 1 Neut # (Auto) 9.1 H Lymph # (Auto) 1.1 [place] # (Auto) 1.6 H Eos # (Auto) 0.3 Baso # (Auto) 0.1 Immature Gran # (Auto) 0.09 H Absolute Nucleated RBC 0.00 Immature Gran % 1 H Nucleated RBC % 0 Sodium 135 L Potassium 4.5 Chloride 98 Carbon Dioxide 26.5 Anion Gap 11 BUN 74 H Creatinine 10.5 H* D Estim Creat Clear Calc 11.2 L eGFR 6 L* BUN/Creatinine Ratio 7 L Glucose 86 Calculated Osmolality 291 Calcium 8.4 Corrected Calcium 9.0 Phosphorus 6.1 H Magnesium 1.8 Total Bilirubin 1.8 H AST < 8 ALT < 7 L Alkaline Phosphatase 452 H D Total Protein 6.5 Albumin 3.3 L Globulin 3.2 Albumin/Globulin Ratio 1.0 L TSH 1.44 Peritoneal Color Yellow Peritoneal Appearance Hazy Peritoneal WBC 1560 Peritoneal RBC 1000 Periton Polynucl WBCs 46 Periton Mononucl WBCs 54 Peritoneal Tot Protein 4 Peritoneal Albumin 2.1 Peritoneal LDH 148 Peritoneal Glucose 76 Peritoneal Amylase 23 Hepatitis A IgM Ab Non Reactive Hep Bs Antigen Non Reactive Hep Bs Antibody Reactive (Immune) Hep B Core IgM Ab Non Reactive Hepatitis C Antibody Non Reactive Quality Measures Quality Measures none Assessment & Plan Assessment Current Active Medications: Generic Name Dose Route Start Last Admin Trade Name Freq PRN Reason Stop Dose Admin Acetaminophen 650 mg 07/21/23 18:15 07/22/23 06:23 Acetaminophen 325 Mg Tablet PO 08/20/23 18:14 650 mg Q6H PRN Administration PAIN OR FEVER > 101 Clonidine 0.2 mg 07/21/23 21:00 07/22/23 12:05 Clonidine Hcl 0.1 Mg Tablet PO 08/20/23 20:59 0.2 mg BID VERONICA Administration Heparin Sodium (Porcine) 5,000 unit 07/21/23 22:00 07/22/23 06:16 Heparin Sod Inj 5000 Unit/Ml Vial SC 08/04/23 21:59 5,000 unit Q8HR VERONICA Administration Hydralazine HCl 10 mg 07/21/23 18:32 Hydralazine Inj 20 Mg/Ml Vial IV 08/20/23 18:44 Q6H PRN hypertension Hydralazine HCl 100 mg 07/21/23 21:00 07/22/23 12:04 Hydralazine Hcl 25 Mg Tablet PO 08/20/23 20:59 100 mg BID VERONICA Administration Ceftriaxone Sodium 2 gm/ 50 mls @ 100 mls/hr 07/22/23 09:00 07/22/23 12:06 Sodium Chloride IV 07/29/23 08:59 100 mls/hr QDAY VERONICA Administration Ondansetron HCl 4 mg 07/21/23 18:15 Ondansetron Inj 2 Mg/Ml Vial 2 Ml IV 08/20/23 18:14 Q6H PRN NAUSEA OR VOMITING Protocol Pantoprazole Sodium 40 mg 07/22/23 09:00 07/22/23 12:06 Pantoprazole 40 Mg Tablet PO 08/21/23 08:59 40 mg QDAY VERONICA Administration Plan Patient is 37-year-old male with past medical history of hypertension, ESRD on Wednesday/Wednesday/Wednesday, presented to ED with chief complaint of worsening abdominal pain and fullness. Discomfort started about 6 days ago, described as fullness, rated as moderate to severe. Patient also endorsed nauseia, decreased appetite, chills, sweats. Patient mentioned that he missed his scheduled dialysis today due to pain discomfort presented to ED. Otherwise patient denied any chest pain, shortness of breath or any other associated. Upon presentation patient was hypertensive with blood pressure 171/89, saturating on room air 97%. This revealed leukocytosis with WBC 13.8, anemic with hemoglobin of 10.0, 635, BUN 63, creatinine 9.2, EGFR 7, T. bili was 2.1, ALP 531, Pro-Jarek was 3.88. CT pelvis/abdomen revealed significant ascites, primary hepatocellular disease, end-stage atrophic [place] kidneys. Successful ultra-stiff paracentesis was done in ED. 4.7 liters of infected looking ascitic fluid was removed. Fluid analysis revealed WBC 1560, with PMA 54, suggestive of SBPs. Patient on ceftriaxone in ED. Patient met SIRS 2/4 criteria and was admitted for sepsis secondary to SBP's.. #Sepsis secondary due to SBP's #SBP #Ascites in the setting of cirrhosis #Abdominal pain, discomfort, increased abdominal girth CT abdomen/pelvis revealed significant ascites, primary hepatocellular disease. Patient had successful ultrasound-guided paracentesis in ED, 4.7 L of hazy fluid was removed, fluid analysis revealed WBC 1506 RBC 1000, PMC 54 percent, LDH 148. MELD-NA score 26,14-15% estimated 90-day mortality. -Patient received Rocephin 2 g -Will continue with Rocephin 2 g daily -50 gm of albumin was ordered -peritonel fluid culture/gs pending -Blood cultures -in 24 hours -Continue monitor daily CBC/CMP #ESRD # chronic anemia alyssa setting of ESRD Patient has a left arm fistula placed and receiving dialysis on M/W/F missed outpatient session Patient is following communications supervisor outpatient Cr 9.2,BUN 63,eGFR 7, K wnl on admission -nephrology was consulted, -had HD in morning , -Nephrology team will continue manage fluid status with HD, ultrafiltrate removal goal of 2.5-3L today as patient can tolerate. -Epoetin-keith was given -recs are appreciated #Hyperbilirubinemia #cirrhosis patient had cholecystectomy in a past T.bill 2.1, ALT 531 on addmision US Liver -continue monitor :Enlarged common bile duct 0.9 cm no definite stones, showed mild cirrhosis -we will request PCP records #hypertension restarted home meds -clonidine 0.2 BID -Hydralazyne 100 BID -hydralazine 10 PRN -continue to monitor Disposition:medsurge DVT prophylaxis: heparin GI prophylaxis: PPi Diet: renal Lines: PIV CODE STATUS:Full code Patient care was discussed with senior resident physician and attending physician Dr. Colin Jalloh MD PGY-1 I have carefully reviewed this document. Due to imperfections in the voice software, there could be grammatical errors including phonetic/typographic errors. This in no way compromises the medical care the patient is receiving
--- NOTE | 2023-07-22 13:18 | PC.CC ---
Tuan Dang is a 37-year-old male admitted for abdominal pain. Data Entry Coordinator made contact with patient at bedside to complete initial and discuss- discharge disposition. Role and reason for the contact was explained to Pt. Demographic information was verified. Pt identified his mother, Madeleine Araiza as his surrogate decision maker [phone]. Pt is independent with all ADLs. Pt does not utilize any source of DME, or home O2. [facility] [address] [facility] [address] . PCP is Tiffanie Cifuentes. Pt is receiving dialysis Wed/Wed/Fridays at 4:00am by [facility] [place] [id number] . At time of discharge Pt will return home, family will provide transportation. Discharge Plan: Home Next of Kin: MotherJose G Carrie [phone] PCP: Tiffanie Cifuentes
[2023-07-22] MEDS: METOPROLOL TARTRATE 25 MG TABLET 100 MG PO (20:44)
[2023-07-23] VITALS (24 sets, daily range): BP systolic 111–152; BP diastolic 66–94; PULSE 71–95; RESP 15–97; TEMP 36.5–37.3; O2SAT 95–97
[2023-07-23 05:28] LABS: Basophils # (Auto) 0.2 Thou/mm3 (0.0-0.2); Basophils % (Auto) 1 % (0-2.5); Eosinophils # (Auto) 0.3 Thou/mm3 (0.0-0.5); Eosinophils % (Auto) 3 % (0-10); Hematocrit 31.1 % (41.0-53.0); Hemoglobin 10.1 g/dL (13.5-16.0); Immature Granulocytes % (Auto) 1 % (0-0); Immature Granulocytes Auto 0.11 Thou/mm3 (0.00-0.00); Lymphocytes # (Auto) 1.2 Thou/mm3 (1.0-4.8); Lymphocytes % (Auto) 9 % (10-50); Mean Corpuscular HGB Conc 32.5 g/dl (31.0-37.0); Mean Corpuscular Volume 89 fL (80-100); Monocytes # (Auto) 1.8 Thou/mm3 (0.0-0.8); Monocytes % (Auto) 14 % (0-12); Neutrophils # (Auto) 9.5 Thou/mm3 (1.8-7.7); Neutrophils % (Auto) 73 % (37-80); Nucleated Red Blood Cell % 0 /100 WBC (0); Platelet Count 629 Thou/mm3 (140-440); RDW Standard Deviation 46.2 fL (35.1-43.9); Red Blood Count 3.48 Miln/mm3 (4.50-5.90); White Blood Count 13.1 Thou/mm3 (3.8-10.6)
[2023-07-23] MEDS: HEPARIN SOD INJ 5000 UNIT/ML VIAL SC ×3 (06:00→21:19)
[2023-07-23 06:27] LABS: Alanine Aminotransferase < 7 U/L (10-49); Albumin, Serum 3.3 gm/dL (3.5-5.0); Alkaline Phosphatase 417 U/L (46-116); Anion Gap 9 (7-16); Aspartate Amino Transferase < 8 U/L (0-34); BUN/Creatinine Ratio 6 Ratio (12-20); Bilirubin,Total 1.6 mg/dL (0.3-1.2); Blood Urea Nitrogen 43 mg/dL (9-23); Calcium 8.6 mg/dL (8.3-10.6); Calcium (Corrected) 9.2 mg/dL (8.5-10.1); Carbon Dioxide 28.4 mMol/L (20.0-31.0); Chloride 98 mMol/L (98-107); Creatinine (Component) 7.8 mg/dL (0.6-1.3); Estimated Creatinine Clearance 15.1 mL/min (>60); Globulin 3.3 gm/dL (2.3-3.5); Glucose 89 mg/dL (74-106); Magnesium 1.7 mg/dL (1.6-2.6); Osmolality,Calculated 279 (275-295); Phosphorous 5.5 mg/dL (2.4-5.1); Potassium 4.5 mMol/L (3.4-5.1); Sodium 135 mMol/L (136-145); Total Protein 6.6 gm/dL (5.7-8.2); eGFR 8 See Note
--- NOTE | 2023-07-23 10:32 | ESPR_ITS ---
Documentation for date of: 07/23/23 Subjective Subjective Interval history: Mr Dang is a 37 YO M with history of hypertension and end-stage renal disease(secondary to hypertensive nephrosclerosis-under the care of Dr. Frausto in [place]) who presented to [facility] emergency department 07/21/2023 complaining of generalized swelling and worsening abdominal pain over the past week, associated with nausea, anorexia, chills and diaphoresis. The patient reports missing his Thursday 07/20 HD session due to his presenting complaint. On presentation, the patient was afebrile with temperature 100.1F, HR 89-106, RR 17-20, hypertensive 171/89mmHg. Initial labs demonstrated leukocytosis (WBC 13.8), anemia (hgb 10.0), with thrombocytosis (plt 518); chemistry remarkable for BUN 63 and sCr 9.2. LFTs with TB 2.1 and alk phos 531, AST and ALT <10. Procalcitonin elevated at 3.88. Nephrology service is consulted for management of anasarca with inpatient hemodialysis in setting of ESRD. 07/22/2023 Patient is seen on dialysis unit, resting comfortably. He is s/p 4.7L fluid removal during paracentesis and 50mg albumin replacement and broad spectrum antibiotic coverage with ceftriaxone 2g daily for spontaneous bacterial peritonitis, and reports abdominal pain is improved this morning. Peritoneal fluid analysis demonstrates 717 PMNs supporting SBP diagnosis, culture remains pending. Morning labs: WBC 12.2, Hgb 8.7, plt 583; Na 135, K 4.5, BUN 74, sCr 10.5, gluc 86. TB 1.8 and alkPhos 452. 07/23/2023 Patient is seen on medical floor, he is resting comfortably with his sister visiting at bedside. Blood cxs NG@48h, peritoneal cx still pending. He was reportedly feeling worse this morning but is now feeling much better s/p HD today, 3h session with 2L UF. Abdominal pain is improving. Blood pressure has been running high though patient did not take BP meds this morning, he noted frequently getting headaches with very high blood pressure at the end of his usual hemodialysis sessions. We will recommend against metoprolol which is dialyzable, and start valsartan. AM labs demonstrate WBC 13.1, hgb 10.1, plt 629; Na 135, K 4.5, BUN 43, sCr 7.8, glu 89. Exam Vital Signs Temp Pulse Resp BP Pulse Ox O2 Del Method 98.1 F 79 17 133/78 H 95 Room Air 07/23/23 10:24 07/23/23 10:15 07/23/23 10:07/23/23 10:15 07/23/23 10:07/23/23 08:00 Narrative Exam General: AAO. NAD. Appears stated age. Currently seen on dialysis HEENT: NC,AT. EOMI grossly intact. MMM. Neck: Supple. Trachea is midline. Chest: Symmetric chest expansion. Cardiac: RRR. Normal S1 and S2. AVF bruit is heard throughout chest versus possible murmur. Resp: No increased work of breathing. No adventitious lung sounds. Abd: Soft, mildly tender diffusely, mildly distended. Extrem: Atraumatic in appearance without deformity. AVF LUE. Skin: Warm, dry. Left AV fistula cannulated Neuro: AAO. Moves all 4. No deficit of speech. CNII-XII grossly intact. Psych: Appropriate mood with reactive and congruent affect. Objective Labs 07/24/23 04:58 07/24/23 04:58 Labs: Laboratory Results - last 24 hr 07/23/23 04:33 WBC 13.1 H RBC 3.48 L Hgb 10.1 L Hct 31.1 L MCV 89 MCH 29.0 MCHC 32.5 RDW Std Deviation 46.2 H Plt Count 629 H D Neut % (Auto) 73 Lymph % (Auto) 9 L [place] % (Auto) 14 H Eos % (Auto) 3 Baso % (Auto) 1 Neut # (Auto) 9.5 H Lymph # (Auto) 1.2 [place] # (Auto) 1.8 H Eos # (Auto) 0.3 Baso # (Auto) 0.2 Immature Gran # (Auto) 0.11 H Absolute Nucleated RBC 0.00 Immature Gran % 1 H Nucleated RBC % 0 Sodium 135 L Potassium 4.5 Chloride 98 Carbon Dioxide 28.4 Anion Gap 9 BUN 43 H Creatinine 7.8 H* D Estim Creat Clear Calc 15.1 L eGFR 8 L* BUN/Creatinine Ratio 6 L Glucose 89 Calculated Osmolality 279 Calcium 8.6 Corrected Calcium 9.2 Phosphorus 5.5 H Magnesium 1.7 Total Bilirubin 1.6 H AST < 8 ALT < 7 L Alkaline Phosphatase 417 H D Total Protein 6.6 Albumin 3.3 L Globulin 3.3 Albumin/Globulin Ratio 1.0 L Quality Measures Quality Measures none Assessment & Plan Assessment Current Active Medications: Generic Name Dose Route Start Last Admin Trade Name Freq PRN Reason Stop Dose Admin Acetaminophen 650 mg 07/22/23 14:00 Acetaminophen 325 Mg Tablet PO 08/20/23 18:14 Q6H PRN PAIN(1-3) OR FEVER > 101 Clonidine 0.2 mg 07/21/23 21:00 07/22/23 20:45 Clonidine Hcl 0.1 Mg Tablet PO 08/20/23 20:59 0.2 mg BID VERONICA Administration Heparin Sodium (Porcine) 5,000 unit 07/21/23 22:00 07/23/23 06:00 Heparin Sod Inj 5000 Unit/Ml Vial SC 08/04/23 21:59 5,000 unit Q8HR VERONICA Administration Hydralazine HCl 10 mg 07/21/23 18:32 Hydralazine Inj 20 Mg/Ml Vial IV 08/20/23 18:44 Q6H PRN hypertension Hydralazine HCl 100 mg 07/21/23 21:00 07/22/23 20:45 Hydralazine Hcl 25 Mg Tablet PO 08/20/23 20:59 100 mg BID VERONICA Administration Ceftriaxone Sodium 2 gm/ 50 mls @ 100 mls/hr 07/22/23 09:00 07/22/23 12:06 Sodium Chloride IV 07/29/23 08:59 100 mls/hr QDAY VERONICA Administration Metoprolol Tartrate 100 mg 07/22/23 21:00 07/22/23 20:44 Metoprolol Tartrate 25 Mg Tablet PO 08/21/23 20:59 100 mg BID VERONICA Administration Ondansetron HCl 4 mg 07/21/23 18:15 Ondansetron Inj 2 Mg/Ml Vial 2 Ml IV 08/20/23 18:14 Q6H PRN NAUSEA OR VOMITING Protocol Pantoprazole Sodium 40 mg 07/22/23 09:00 07/22/23 12:06 Pantoprazole 40 Mg Tablet PO 08/21/23 08:59 40 mg QDAY VERONICA Administration Plan Mr Dang is a 37 YO M hx HTN and ESRD and likely new diagnosis of liver disease who presents with ascites and likely SBP, admitted for management of same. S/p paracentesis 07/20 with >700 PMNs, culture pending. On broad spectrum coverage with ceftriaxone 2g daily. Nephrology is consulted for management of inpatient HD and patient's fluid overload. #Anasarca / abdominal ascites #Sepsis #Spontaneous bacterial peritonitis, pending culture #Likely newly dx liver cirrhosis CT Abd/pelvis demonstrated significant ascites, liver mildly irregular in contour no focal liver lesions. Liver US demonstrated enlarged common bile duct 0.9 cm no definite stones and moderate hepatomegaly, cirrhosis, no focal liver lesions s/p paracentesis with 4.7L fluid removal and replacement of 50g albumin 07/20. pending fluid culture, blood cultures NG@48h. on ceftriaxone 2g daily broad spectrum empiric coverage, which was escalated to meropenem this morning. MELD-Na 26 points portends 14-15% estimated 90-day mortality. MDF 11.3 and GAHS 6 are reassuring prognostically for possible hepatitis. - We will manage fluid status with HD, as below. - Continue rest of SBP management as per primary team. #ESRD on HD M/W/F #Hyperphosphatemia Missed regularly scheduled Wednesday session on 07/20 07/21 3h session, 2K, ultrafiltration 2.8 L, Epogen 6000, no heparin ordered. today 07/22 3h session, -2L UF - Will continue regularly scheduled M/W/ HD. - Renally dose medications - Strictly monitor I/Os - If patient has residual urine ouput, avoid nephrotoxic agents - Daily renal panel #Chronic normocytic anemia secondary to ESRD - epoetin keith during HD #Hypertension - Continue hydralazine and clonidine. - Discontinue metoprolol which is dialyzable and likely contributing to patient's post-HD hypertension, consider labetalol as an alternative - Initiate Valsartan 80mg in the morning, titrate up as tolerated Thank you for allowing us to participate in this patient's care. The patient was seen, examined, and discussed with attending garment parts cutter hand Dr Corby Venegas PGY1 Attending Provider Attestation/Addendum Patient currently seen and examined with resident physician Dr. Venegas. Note reviewed, agree with findings and recommendations. Patient currently seen on dialysis. Tolerating dialysis without any problems. Hemodialysis for 3 hours, 2K, ultrafiltration 2-3 L, Epogen 6000, no heparin ordered. Plan of care discussed with the dialysis nurse. Please see dialysis flowsheet for further details. Antibiotics for SBP. Blood pressure on the higher side. Switch metoprolol to labetalol. Metoprolol is dialyzable. His sister at bedside.
--- NOTE | 2023-07-23 11:22 | PC.NURSE ---
Dialysis completed for 3 hrs, tolerated well. Pt awake, A/O x4. Respiration even and unlabored O2 sat 96% room air. Able to removed 2000 ml of fluid net. Post tx BP 142/83, HR 79, Temp 98.1. Pt back in his room. Call light within reached. Pressure dressing on left upper arm AV fistula no bleeding, clean/dry/intact. Report given to La MARCUM
--- NOTE | 2023-07-23 11:56 | XR_ITS ---
Examination: Abdomen sonogram, complete Date and time of exam: July 23, 2023 1442 hours INDICATIONS: Right upper abdominal pain beginning 3 days ago with distention. Technique: Multiple real-time grayscale transabdominal sonographic images of the abdomen have been obtained. Findings: Absent gallbladder Common bile duct 0.7 cm Pancreatic head 2.7 cm Aorta not enlarged Liver 17.3 cm fatty infiltration Mild free fluid in the upper abdomen Normal hepatopedal portal venous flow Patent IVC Right kidney 7.5 x 3.5 x 5.0 cm in the cortex 0.8 cm Left kidney 7.0 x 5.1 x 4.9 cm cortex 0.9 cm Moderate bilateral renal parenchymal scar formation no hydronephrosis Spleen 9.9 cm IMPRESSION: Absent gallbladder No common bile duct stones Mild hepatomegaly fatty infiltration Mild free fluid in the upper abdomen Small kidneys with bilateral renal cortical thinning Moderate bilateral apical scar formation No hydronephrosis
[2023-07-23] MEDS: MEROPENEM INJ 500 MG in SODIUM CHLORIDE 0.9% (P) 50 ML 100 MG IV (12:49)
--- NOTE | 2023-07-23 14:05 | PC.NURSE ---
upon return of dialysis pt refused bp medications. Per pt his normal bp is always high with the current bp at 142/69-72. Pt concern it will drop his bp. Made MD brar aware at bedside.
[2023-07-23 16:36] LABS: Hepatitis A Antibody IgM Non Reactive (Non React); Hepatitis B Core Antibody IgM Non Reactive (Non React); Hepatitis B Surface Antigen Non Reactive (Non React); Hepatitis C Antibody Non Reactive (Non React)
--- NOTE | 2023-07-23 18:02 | ESPR_ITS ---
<Statement entered by Lee Suggs MD - 07/23/23 20:49> patient seen and assessed at bedside this morning during dialysis. patient complaining of abdominal pain.after dialysis patient had improvement in abdominal pain. Will continue with IV Rocephin 2 g. awaiting peritoneal fluid cultures. Documentation for date of: 07/23/23 Subjective Subjective Interval history: Patient was seen and examined at hemodialysis room. No acute overnight events. Labs and vitals were reviewed, CBC 13.1. Patient still anemic with hemoglobin of 1.1. Yesterday creatinine went up from 7-10.5, in the morning patient had HD dialysis, with goal of 2 L of removal. In a.m. patient was complained of abdominal pain, discomfort, abdomen ultrasound was ordered which revealed mild hepatomegaly with fatty infiltration more mild free fluid in upper abdomen was noted.vital signs are reviewed, BP still in the range, per nephrology we will discontinue metoprolol which she is dialyzable and likely contributing to patient's post HD hypotension. Will start valsartan 80 mg in the morning, and will titrate up as tolerated. Will continue ceftriaxone times daily. Pending pleural fluid culture. Blood culture negative in 24-hour. Exam Vital Signs Temp Pulse Resp BP Pulse Ox O2 Del Method 98.7 F 71 18 137/87 H 95 Room Air 07/23/23 16:00 07/23/23 16:00 07/23/23 16:00 07/23/23 16:00 07/23/23 16:00 07/23/23 16:00 Narrative Exam GENERAL: no acute distress, AAO x3, HEENT: Head AT/ NC. Mucous membranes moist. PERRL. NECK: Supple, no lymphadenopathy, no carotid bruits. CARDIOVASCULAR: RRR. Normal S1/S2, No m/r/g. No pitting edema of bilateral LEs. RESPIRATORY: CTAB. No wheezing, rhonchi, crackles. GASTROINTESTINAL: Abdomen soft, mildlydistended, mildly tender, no palpable masses. Bowel sounds present in all 4 quadrants. MUSCULOSKELETAL:? No cyanosis or edema, no visible joint swelling.AV fistula noted on left arm NEUROLOGICAL: No focal deficits. Sensation intact, symmetric. PSYCHIATRIC: Awake and alert, not agitated, normal mood and affect. INTEGUMENTARY: No obvious rashes, no jaundice, normal turgor multiple black spots on BL LE. Objective Labs 07/24/23 04:58 07/24/23 04:58 Labs: Laboratory Results - last 24 hr 07/23/23 04:33 WBC 13.1 H RBC 3.48 L Hgb 10.1 L Hct 31.1 L MCV 89 MCH 29.0 MCHC 32.5 RDW Std Deviation 46.2 H Plt Count 629 H D Neut % (Auto) 73 Lymph % (Auto) 9 L [place] % (Auto) 14 H Eos % (Auto) 3 Baso % (Auto) 1 Neut # (Auto) 9.5 H Lymph # (Auto) 1.2 [place] # (Auto) 1.8 H Eos # (Auto) 0.3 Baso # (Auto) 0.2 Immature Gran # (Auto) 0.11 H Absolute Nucleated RBC 0.00 Immature Gran % 1 H Nucleated RBC % 0 Sodium 135 L Potassium 4.5 Chloride 98 Carbon Dioxide 28.4 Anion Gap 9 BUN 43 H Creatinine 7.8 H* D Estim Creat Clear Calc 15.1 L eGFR 8 L* BUN/Creatinine Ratio 6 L Glucose 89 Calculated Osmolality 279 Calcium 8.6 Corrected Calcium 9.2 Phosphorus 5.5 H Magnesium 1.7 Total Bilirubin 1.6 H AST < 8 ALT < 7 L Alkaline Phosphatase 417 H D Total Protein 6.6 Albumin 3.3 L Globulin 3.3 Albumin/Globulin Ratio 1.0 L Hepatitis A IgM Ab Non Reactive Hep Bs Antigen Non Reactive Hep B Core IgM Ab Non Reactive Hepatitis C Antibody Non Reactive Quality Measures Quality Measures none Assessment & Plan Assessment Current Active Medications: Generic Name Dose Route Start Last Admin Trade Name Ivánq PRN Reason Stop Dose Admin Acetaminophen 650 mg 07/22/23 14:00 Acetaminophen 325 Mg Tablet PO 08/20/23 18:14 Q6H PRN PAIN(1-3) OR FEVER > 101 Clonidine 0.2 mg 07/21/23 21:00 07/23/23 12:48 Clonidine Hcl 0.1 Mg Tablet PO 08/20/23 20:59 Not Given BID VERONICA Heparin Sodium (Porcine) 5,000 unit 07/21/23 22:00 07/23/23 14:31 Heparin Sod Inj 5000 Unit/Ml Vial SC 08/04/23 21:59 5,000 unit Q8HR VERONICA Administration Hydralazine HCl 10 mg 07/21/23 18:32 Hydralazine Inj 20 Mg/Ml Vial IV 08/20/23 18:44 Q6H PRN hypertension Hydralazine HCl 100 mg 07/21/23 21:00 07/23/23 12:48 Hydralazine Hcl 25 Mg Tablet PO 08/20/23 20:59 Not Given BID [facility] Ceftriaxone Sodium 2 gm/ 50 mls @ 100 mls/hr 07/24/23 09:00 Sodium Chloride IV 07/31/23 08:59 QDAY [facility] Metoprolol Tartrate 100 mg 07/22/23 21:00 07/23/23 12:48 Metoprolol Tartrate 25 Mg Tablet PO 08/21/23 20:59 Not Given BID VERONICA Ondansetron HCl 4 mg 07/21/23 18:15 Ondansetron Inj 2 Mg/Ml Vial 2 Ml IV 08/20/23 18:14 Q6H PRN NAUSEA OR VOMITING Protocol Pharmacy Consult 1 each 07/23/23 11:55 Pharmacy Renal Dose Adjustment 1 Ea XX 08/22/23 11:54 PRN PRN CONSULT Valsartan 80 mg 07/24/23 09:00 Valsartan 80 Mg Tablet PO 08/23/23 08:59 QDAY [facility] Plan Patient is 37-year-old male with past medical history of hypertension, ESRD on Wednesday/Wednesday/Wednesday, presented to ED with chief complaint of worsening abdominal pain and fullness. Discomfort started about 6 days ago, described as fullness, rated as moderate to severe. Patient also endorsed nauseia, decreased appetite, chills, sweats. Patient mentioned that he missed his scheduled dialysis today due to pain discomfort presented to ED. Otherwise patient denied any chest pain, shortness of breath or any other associated. Upon presentation patient was hypertensive with blood pressure 171/89, saturating on room air 97%. This revealed leukocytosis with WBC 13.8, anemic with hemoglobin of 10.0, 635, BUN 63, creatinine 9.2, EGFR 7, T. bili was 2.1, ALP 531, Pro-Jarek was 3.88. CT pelvis/abdomen revealed significant ascites, primary hepatocellular disease, end-stage atrophic elim ira kidneys. Successful ultra-stiff paracentesis was done in ED. 4.7 liters of infected looking ascitic fluid was removed. Fluid analysis revealed WBC 1560, with PMA 54, suggestive of SBPs. Patient on ceftriaxone in ED. Patient met SIRS 2/4 criteria and was admitted for sepsis secondary to SBP's.. #Sepsis secondary due to SBP's #SBP #Ascites in the setting of cirrhosis #Abdominal pain, discomfort, increased abdominal girth CT abdomen/pelvis revealed significant ascites, primary hepatocellular disease. Patient had successful ultrasound-guided paracentesis in ED, 4.7 L of hazy fluid was removed, fluid analysis revealed WBC 1506 RBC 1000, PMC 54 percent, LDH 148. MELD-NA score 26,14-15% estimated 90-day mortality. 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.2,BUN 63,eGFR 7, K wnl on admission -nephrology was consulted, -had HD in morning , -Nephrology team will continue manage fluid status with HD -Patient yesterday had HD with 2.7 L of removed, patient had another HD today, with goal of 2 L to removed as patient tolerates -Patient will continue have hemodialysis session in the hospital setting, Wednesday/Wednesday/Wednesday -Epoetin-keith was given x 1 -recs are appreciated #Hyperbilirubinemia #cirrhosis patient had cholecystectomy in a past T.bill 2.1, ALT 531 on admission US Liver -continue monitor :Enlarged common bile duct 0.9 cm no definite stones, showed mild cirrhosis -we will request PCP records #hypertension restarted home meds -clonidine 0.2 BID -Hydralazyne 100 BID -Metoprolol 100 twice daily was discontinued as metoprolol is dialyzable which mostly contributes patient's postdialysis hypertension -Per nephrology Valsartan 80 mg daily started -Will consider labetalol IV push as needed if BP is not sustained -hydralazine 10 PRN -continue to monitor Disposition:medsurge DVT prophylaxis: heparin GI prophylaxis: PPi Diet: renal Lines: PIV CODE STATUS:Full code Patient care was discussed with senior resident physician and attending physician Dr. Bimal Jalloh MD PGY-1 I have carefully reviewed this document. Due to imperfections in the voice software, there could be grammatical errors including phonetic/typographic errors. This in no way compromises the medical care the patient is receiving Attending Provider Attestation/Addendum Face to face evaluation was performed by me. I have personally seen and examined the patient. I discussed the assessment and plan with the entire medicine team, including Dr. Jalloh. I reviewed available medical records, imaging studies, laboratory results. I agree with the above subjective data, objective findings, assessment and plan except as noted Sepsis, POA without septic shock, likely due to SBP Suspected SBP ESRD on HD Abdominal pain and distention - HD per Nephrology - EMpiric Abs with IV ROcephin2 G for SBP therapy, high ENRIQUE SOFA score, consider broadening Abxs to Carbapenem if no clinical improvement in first 48 hours. Per patient his pain is better, he is afebrile
[2023-07-23] MEDS: hydrALAZINE HCL 25 MG TABLET 100 MG PO (20:42)
[2023-07-23] MEDS: cloNIDine HCL 0.1 MG TABLET 0.2 MG PO (20:43)
[2023-07-24] VITALS (11 sets, daily range): BP systolic 107–149; BP diastolic 58–90; PULSE 74–95; RESP 16–96; TEMP 36.1–37.1; O2SAT 95–98
--- NOTE | 2023-07-24 04:45 | PC.NURSE ---
Notified Dr. Cristina that patient refused AM labs.
[2023-07-24] MEDS: HEPARIN SOD INJ 5000 UNIT/ML VIAL SC (05:45)
[2023-07-24 06:23] LABS: Basophils # (Auto) 0.1 Thou/mm3 (0.0-0.2); Basophils % (Auto) 1 % (0-2.5); Eosinophils # (Auto) 0.3 Thou/mm3 (0.0-0.5); Eosinophils % (Auto) 3 % (0-10); Hematocrit 27.7 % (41.0-53.0); Hemoglobin 9.1 g/dL (13.5-16.0); Immature Granulocytes % (Auto) 1 % (0-0); Immature Granulocytes Auto 0.14 Thou/mm3 (0.00-0.00); Lymphocytes # (Auto) 1.5 Thou/mm3 (1.0-4.8); Lymphocytes % (Auto) 12 % (10-50); Mean Corpuscular HGB Conc 32.9 g/dl (31.0-37.0); Mean Corpuscular Hemoglobin 29.4 pg (25.0-35.0); Mean Corpuscular Volume 89 fL (80-100); Monocytes # (Auto) 1.8 Thou/mm3 (0.0-0.8); Monocytes % (Auto) 15 % (0-12); Neutrophils # (Auto) 8.3 Thou/mm3 (1.8-7.7); Neutrophils % (Auto) 68 % (37-80); Nucleated Red Blood Cell % 0 /100 WBC (0); Platelet Count 616 Thou/mm3 (140-440); RDW Standard Deviation 46.3 fL (35.1-43.9); White Blood Count 12.2 Thou/mm3 (3.8-10.6)
[2023-07-24 07:08] LABS: Albumin, Serum 3.2 gm/dL (3.5-5.0); Alkaline Phosphatase 415 U/L (46-116); Anion Gap 9 (7-16); Aspartate Amino Transferase < 8 U/L (0-34); BUN/Creatinine Ratio 5 Ratio (12-20); Bilirubin,Total 1.5 mg/dL (0.3-1.2); Blood Urea Nitrogen 35 mg/dL (9-23); Calcium 8.4 mg/dL (8.3-10.6); Carbon Dioxide 29.1 mMol/L (20.0-31.0); Chloride 98 mMol/L (98-107); Creatinine (Component) 6.6 mg/dL (0.6-1.3); Estimated Creatinine Clearance 17.8 mL/min (>60); Globulin 3.3 gm/dL (2.3-3.5); Glucose 80 mg/dL (74-106); Magnesium 1.8 mg/dL (1.6-2.6); Osmolality,Calculated 278 (275-295); Phosphorous 4.8 mg/dL (2.4-5.1); Potassium 4.1 mMol/L (3.4-5.1); Sodium 136 mMol/L (136-145); Total Protein 6.5 gm/dL (5.7-8.2); eGFR 10 See Note
[2023-07-24 07:10] LABS: Alanine Aminotransferase < 7 U/L (10-49)
[2023-07-24 08:58] LABS: Cardiac Risk Estimate 3.8 RATIO (4.0-6.7); Cholesterol 98 mg/dL (132-200); HDL Cholesterol 26 mg/dL (40-60); LDL Cholesterol,Calculated 57 mg/dL (0-130); Triglycerides 73 mg/dL (30-150)
[2023-07-24] MEDS: hydrALAZINE HCL 25 MG TABLET 100 MG PO ×2 (09:27→20:40)
[2023-07-24] MEDS: cefTRIAXone 2 GM in SODIUM CHLORIDE 0.9% (P) 50 ML IV (09:27)
[2023-07-24] MEDS: cloNIDine HCL 0.1 MG TABLET 0.2 MG PO ×2 (09:28→20:41)
[2023-07-24] MEDS: VALSARTAN 80 MG TABLET PO (09:28)
--- NOTE | 2023-07-24 14:26 | ESPR_ITS ---
<Statement entered by Murray López MD - 07/27/23 18:44> Patient seen and examined at bedside in [facility]. Patient doing well however still reports residual pain. Will continue on IV Rocephin for SBP for 1 additional day anticipate discharge in next 24 to 48 hours. Agree with assessment and plan as dictated below Murray López, PGY 3 Documentation for date of: 07/24/23 Subjective Subjective Interval history: Patient was seen and examined at bedside. No acute overnight events. Labs revealed anemia with hemoglobin of 9.1, creatinine today is 6.6 down from 7.8. Will continue 1 more day with IV ceftriaxone, patient will need EGD outpatient to rule out esophageal varices, will continue closely monitor, patient will have hemodialysis sessions in the hospital setting. Will follow-up with nephrology recommended. Anticipate discharge in the next 20 hours with ciprofloxacin 500 twice daily for 3-4 more days. Exam Vital Signs Temp Pulse Resp BP Pulse Ox O2 Del Method 97.2 F 86 16 124/77 96 Room Air 07/24/23 11:55 07/24/23 11:55 07/24/23 11:55 07/24/23 11:55 07/24/23 11:55 07/24/23 11:55 Narrative Exam GENERAL: no acute distress, AAO x3, HEENT: Head AT/ NC. Mucous membranes moist. PERRL. NECK: Supple, no lymphadenopathy, no carotid bruits. CARDIOVASCULAR: RRR. Normal S1/S2, No m/r/g. No pitting edema of bilateral LEs. RESPIRATORY: CTAB. No wheezing, rhonchi, crackles. GASTROINTESTINAL: Abdomen soft, mildlydistended, mildly tender, no palpable masses. Bowel sounds present in all 4 quadrants. MUSCULOSKELETAL:? No cyanosis or edema, no visible joint swelling.AV fistula noted on left arm NEUROLOGICAL: No focal deficits. Sensation intact, symmetric. PSYCHIATRIC: Awake and alert, not agitated, sad affect. INTEGUMENTARY: No obvious rashes, no jaundice, normal turgor multiple black spots on BL LE. Objective Labs 07/24/23 04:58 07/24/23 04:58 Labs: Laboratory Results - last 24 hr 07/23/23 07/24/23 04:33 04:58 WBC 12.2 H RBC 3.10 L Hgb 9.1 L Hct 27.7 L MCV 89 MCH 29.4 MCHC 32.9 RDW Std Deviation 46.3 H Plt Count 616 H Neut % (Auto) 68 Lymph % (Auto) 12 [place] % (Auto) 15 H Eos % (Auto) 3 Baso % (Auto) 1 Neut # (Auto) 8.3 H Lymph # (Auto) 1.5 [place] # (Auto) 1.8 H Eos # (Auto) 0.3 Baso # (Auto) 0.1 Immature Gran # (Auto) 0.14 H Absolute Nucleated RBC 0.00 Immature Gran % 1 H Nucleated RBC % 0 Sodium 136 Potassium 4.1 Chloride 98 Carbon Dioxide 29.1 Anion Gap 9 BUN 35 H Creatinine 6.6 H* D Estim Creat Clear Calc 17.8 L eGFR 10 L* BUN/Creatinine Ratio 5 L Glucose 80 Calculated Osmolality 278 Calcium 8.4 Corrected Calcium 9.0 Phosphorus 4.8 Magnesium 1.8 Total Bilirubin 1.5 H AST < 8 ALT < 7 L Alkaline Phosphatase 415 H Total Protein 6.5 Albumin 3.2 L Globulin 3.3 Albumin/Globulin Ratio 1.0 L Triglycerides 73 Cholesterol 98 L LDL Cholesterol, Calc 57 HDL Cholesterol 26 L Cholesterol/HDL Ratio 3.8 L Hepatitis A IgM Ab Non Reactive Hep Bs Antigen Non Reactive Hep B Core IgM Ab Non Reactive Hepatitis C Antibody Non Reactive Quality Measures Quality Measures none Assessment & Plan Assessment Current Active Medications: Generic Name Dose Route Start Last Admin Trade Name Freq PRN Reason Stop Dose Admin Acetaminophen 650 mg 07/22/23 14:00 Acetaminophen 325 Mg Tablet PO 08/20/23 18:14 Q6H PRN PAIN(1-3) OR FEVER > 101 Clonidine 0.2 mg 07/21/23 21:00 07/24/23 09:28 Clonidine Hcl 0.1 Mg Tablet PO 08/20/23 20:59 0.2 mg BID VERONICA Administration Heparin Sodium (Porcine) 5,000 unit 07/21/23 22:00 07/24/23 05:45 Heparin Sod Inj 5000 Unit/Ml Vial SC 08/04/23 21:59 5,000 unit Q8HR VERONICA Administration Hydralazine HCl 10 mg 07/21/23 18:32 Hydralazine Inj 20 Mg/Ml Vial IV 08/20/23 18:44 Q6H PRN hypertension Hydralazine HCl 100 mg 07/21/23 21:00 07/24/23 09:27 Hydralazine Hcl 25 Mg Tablet PO 08/20/23 20:59 100 mg BID VERONICA Administration Ceftriaxone Sodium 2 gm/ 50 mls @ 100 mls/hr 07/24/23 09:00 07/24/23 09:27 Sodium Chloride IV 07/31/23 08:59 100 mls/hr QDAY [facility]ONICA Administration Ondansetron HCl 4 mg 07/21/23 18:15 Ondansetron Inj 2 Mg/Ml Vial 2 Ml IV 08/20/23 18:14 Q6H PRN NAUSEA OR VOMITING Protocol Pharmacy Consult 1 each 07/23/23 11:55 Pharmacy Renal Dose Adjustment 1 Ea XX 08/22/23 11:54 PRN PRN CONSULT Valsartan 80 mg 07/24/23 09:00 07/24/23 09:28 Valsartan 80 Mg Tablet PO 08/23/23 08:59 80 mg QDAY [facility]ONICA Administration Plan Patient is 37-year-old male with past medical history of hypertension, ESRD on Wednesday/Wednesday/Wednesday, presented to ED with chief complaint of worsening abdominal pain and fullness. Discomfort started about 6 days ago, described as fullness, rated as moderate to severe. Patient also endorsed nauseia, decreased appetite, chills, sweats. Patient mentioned that he missed his scheduled dialysis today due to pain discomfort presented to ED. Otherwise patient denied any chest pain, shortness of breath or any other associated. Upon presentation patient was hypertensive with blood pressure 171/89, saturating on room air 97%. This revealed leukocytosis with WBC 13.8, anemic with hemoglobin of 10.0, 635, BUN 63, creatinine 9.2, EGFR 7, T. bili was 2.1, ALP 531, Pro-Jarek was 3.88. CT pelvis/abdomen revealed significant ascites, primary hepatocellular disease, end-stage atrophic false pass kidneys. Successful ultra-stiff paracentesis was done in ED. 4.7 liters of infected looking ascitic fluid was removed. Fluid analysis revealed WBC 1560, with PMA 54, suggestive of SBPs. Patient on ceftriaxone in ED. Patient met SIRS 2/4 criteria and was admitted for sepsis secondary to SBP's.. #Sepsis secondary due to SBP's #SBP #Ascites in the setting of cirrhosis #Abdominal pain, discomfort, increased abdominal girth CT abdomen/pelvis revealed significant ascites, primary hepatocellular disease. Patient had successful ultrasound-guided paracentesis in ED, 4.7 L of hazy fluid was removed, fluid analysis revealed WBC 1506 RBC 1000, PMC 54 percent, LDH 148. MELD-NA score 26,14-15% estimated 90-day mortality. -Patient received Rocephin 2 g -Will continue with Rocephin 2 g daily -50 gm of albumin was given after paracentesis -peritonel fluid culture/gs pending -Blood cultures -in 48 hours -Continue IV Rocephin 2 g for 1 more day, we will switch to p.o. 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,BUN 63,eGFR 7, K wnl on admission -nephrology was consulted, -had HD in morning , -Nephrology team will continue manage fluid status with HD -Patient yesterday had HD with 2.7 L of removed, patient had another HD today, with goal of 2 L to removed as patient tolerates -Patient will continue have hemodialysis session in the hospital setting, Wednesday/Wednesday/Wednesday -Epoetin-keith was given x 1 -recs are appreciated #Hyperbilirubinemia #cirrhosis patient had cholecystectomy in a past T.bill 2.1, ALT 531 on admission US Liver :Enlarged common bile duct 0.9 cm no definite stones, showed mild cirrhosis -Outpatient follow-up with GI for possible EGD to rule out esophageal varices -Patient needs to follow-up with hepatology outpatient #hypertension restarted home meds -clonidine 0.2 BID -Hydralazyne 100 BID -Per nephrology Valsartan 80 mg daily started -Will consider labetalol IV push as needed if BP is not sustained -hydralazine 10 PRN -continue to monitor Disposition:medsurge DVT prophylaxis: heparin GI prophylaxis: none Diet: renal Lines: PIV CODE STATUS:Full code Patient care was discussed with senior resident physician and attending physician Dr. Bimal Jalloh MD PGY-1 I have carefully reviewed this document. Due to imperfections in the voice software, there could be grammatical errors including phonetic/typographic errors. This in no way compromises the medical care the patient is receiving Attending Provider Attestation/Addendum Face to face evaluation was performed by me. I have personally seen and examined the patient. I discussed the assessment and plan with the entire medicine team, including Dr. Jalloh. I reviewed available medical records, imaging studies, laboratory results. I agree with the above subjective data, objective findings, assessment and plan except as noted Sepsis, POA without septic shock, likely due to SBP Suspected SBP ESRD on HD Abdominal pain and distention - HD per Nephrology - EMpiric Abs with IV ROcephin2 G for SBP therapy, high ENRIQUE SOFA score, consider broadening Abxs to Carbapenem if no clinical improvement in first 48 hours. Per patient his pain is better, he is afebrile plan for 5 days in hospital ABx IV, clinically improving.
--- NOTE | 2023-07-24 20:16 | PD.RESPRO ---
Documentation for date of: 07/24/23 Subjective Subjective Interval history: Mr Dang is a 37 YO M with history of hypertension and end-stage renal disease(secondary to hypertensive nephrosclerosis-under the care of Dr. Frausto in [place]) who presented to [facility] emergency department 07/21/2023 complaining of generalized swelling and worsening abdominal pain over the past week, associated with nausea, anorexia, chills and diaphoresis. The patient reports missing his Thursday 07/20 HD session due to his presenting complaint. On presentation, the patient was afebrile with temperature 100.1F, HR 89-106, RR 17-20, hypertensive 171/89mmHg. Initial labs demonstrated leukocytosis (WBC 13.8), anemia (hgb 10.0), with thrombocytosis (plt 518); chemistry remarkable for BUN 63 and sCr 9.2. LFTs with TB 2.1 and alk phos 531, AST and ALT <10. Procalcitonin elevated at 3.88. Nephrology service is consulted for management of anasarca with inpatient hemodialysis in setting of ESRD. 07/22/2023 Patient is seen on dialysis unit, resting comfortably. He is s/p 4.7L fluid removal during paracentesis and 50mg albumin replacement and broad spectrum antibiotic coverage with ceftriaxone 2g daily for spontaneous bacterial peritonitis, and reports abdominal pain is improved this morning. Peritoneal fluid analysis demonstrates 717 PMNs supporting SBP diagnosis, culture remains pending. Morning labs: WBC 12.2, Hgb 8.7, plt 583; Na 135, K 4.5, BUN 74, sCr 10.5, gluc 86. TB 1.8 and alkPhos 452. 07/23/2023 Patient is seen on medical floor, he is resting comfortably with his sister visiting at bedside. Blood cxs NG@48h, peritoneal cx still pending. He was reportedly feeling worse this morning but is now feeling much better s/p HD today, 3h session with 2L UF. Abdominal pain is improving. Blood pressure has been running high though patient did not take BP meds this morning, he noted frequently getting headaches with very high blood pressure at the end of his usual hemodialysis sessions. We will recommend against metoprolol which is dialyzable, and start valsartan. AM labs demonstrate WBC 13.1, hgb 10.1, plt 629; Na 135, K 4.5, BUN 43, sCr 7.8, glu 89. 07/24/2023 Mr Dang is seen on medical floor, he is resting comfortably. He reports feeling better with improvement to abdominal pain. Afebrile with stable vitals; blood pressure has been better controlled. Peritoneal fluid culture 07/20 remains pending. AM labs: WBC 12.2, Hgb 9.1, plt 616; Na 136, K 4.1, BUN 35, sCr 6.6, glu 80. Exam Vital Signs Temp Pulse Resp BP Pulse Ox O2 Del Method 97.6 F 91 17 128/79 95 Room Air 07/24/23 16:00 07/24/23 16:00 07/24/23 16:07/24/23 16:07/24/23 16:07/24/23 16:00 Narrative Exam General: AAO. NAD. Appears stated age. Currently seen on dialysis HEENT: NC,AT. EOMI grossly intact. MMM. Neck: Supple. Trachea is midline. Chest: Symmetric chest expansion. Cardiac: RRR. Normal S1 and S2. AVF bruit is heard throughout chest versus possible murmur. Resp: No increased work of breathing. No adventitious lung sounds. Abd: Soft, mildly tender diffusely, mildly distended. Extrem: Atraumatic in appearance without deformity. AVF LUE. Skin: Warm, dry. Left AV fistula cannulated Neuro: AAO. Moves all 4. No deficit of speech. CNII-XII grossly intact. Psych: Appropriate mood with reactive and congruent affect. Objective Labs 07/24/23 04:58 07/24/23 04:58 Labs: Laboratory Results - last 24 hr 07/24/23 04:58 WBC 12.2 H RBC 3.10 L Hgb 9.1 L Hct 27.7 L MCV 89 MCH 29.4 MCHC 32.9 RDW Std Deviation 46.3 H Plt Count 616 H Neut % (Auto) 68 Lymph % (Auto) 12 [place] % (Auto) 15 H Eos % (Auto) 3 Baso % (Auto) 1 Neut # (Auto) 8.3 H Lymph # (Auto) 1.5 [place] # (Auto) 1.8 H Eos # (Auto) 0.3 Baso # (Auto) 0.1 Immature Gran # (Auto) 0.14 H Absolute Nucleated RBC 0.00 Immature Gran % 1 H Nucleated RBC % 0 Sodium 136 Potassium 4.1 Chloride 98 Carbon Dioxide 29.1 Anion Gap 9 BUN 35 H Creatinine 6.6 H* D Estim Creat Clear Calc 17.8 L eGFR 10 L* BUN/Creatinine Ratio 5 L Glucose 80 Calculated Osmolality 278 Calcium 8.4 Corrected Calcium 9.0 Phosphorus 4.8 Magnesium 1.8 Total Bilirubin 1.5 H AST < 8 ALT < 7 L Alkaline Phosphatase 415 H Total Protein 6.5 Albumin 3.2 L Globulin 3.3 Albumin/Globulin Ratio 1.0 L Triglycerides 73 Cholesterol 98 L LDL Cholesterol, Calc 57 HDL Cholesterol 26 L Cholesterol/HDL Ratio 3.8 L Quality Measures Quality Measures none Assessment & Plan Assessment Current Active Medications: Generic Name Dose Route Start Last Admin Trade Name Freq PRN Reason Stop Dose Admin Acetaminophen 650 mg 07/22/23 14:00 Acetaminophen 325 Mg Tablet PO 08/20/23 18:14 Q6H PRN PAIN(1-3) OR FEVER > 101 Clonidine 0.2 mg 07/21/23 21:00 07/24/23 09:28 Clonidine Hcl 0.1 Mg Tablet PO 08/20/23 20:59 0.2 mg BID VERONICA Administration Heparin Sodium (Porcine) 5,000 unit 07/21/23 22:00 07/24/23 15:52 Heparin Sod Inj 5000 Unit/Ml Vial SC 08/04/23 21:59 Not Given Q8HR VERONICA Hydralazine HCl 10 mg 07/21/23 18:32 Hydralazine Inj 20 Mg/Ml Vial IV 08/20/23 18:44 Q6H PRN hypertension Hydralazine HCl 100 mg 07/21/23 21:00 07/24/23 09:27 Hydralazine Hcl 25 Mg Tablet PO 08/20/23 20:59 100 mg BID VERONICA Administration Ceftriaxone Sodium 2 gm/ 50 mls @ 100 mls/hr 07/24/23 09:00 07/24/23 09:27 Sodium Chloride IV 07/31/23 08:59 100 mls/hr QDAY VERONICA Administration Ondansetron HCl 4 mg 07/21/23 18:15 Ondansetron Inj 2 Mg/Ml Vial 2 Ml IV 08/20/23 18:14 Q6H PRN NAUSEA OR VOMITING Protocol Pharmacy Consult 1 each 07/23/23 11:55 Pharmacy Renal Dose Adjustment 1 Ea XX 08/22/23 11:54 PRN PRN CONSULT Valsartan 80 mg 07/24/23 09:00 07/24/23 09:28 Valsartan 80 Mg Tablet PO 08/23/23 08:59 80 mg QDAY VERONICA Administration Plan Mr Dang is a 37 YO M hx HTN and ESRD and likely new diagnosis of liver disease who presents with ascites and likely SBP, admitted for management of same. S/p paracentesis 07/20 with >700 PMNs, culture pending. On broad spectrum coverage with ceftriaxone 2g daily. Nephrology is consulted for management of inpatient HD and patient's fluid overload. #Anasarca / abdominal ascites #Sepsis #Spontaneous bacterial peritonitis, pending culture #Likely newly dx liver cirrhosis CT Abd/pelvis demonstrated significant ascites, liver mildly irregular in contour no focal liver lesions. Liver US demonstrated enlarged common bile duct 0.9 cm no definite stones and moderate hepatomegaly, cirrhosis, no focal liver lesions s/p paracentesis with 4.7L fluid removal and replacement of 50g albumin 07/20. pending fluid culture, blood cultures NG@48h. on ceftriaxone 2g daily broad spectrum empiric coverage MELD-Na 26 points portends 14-15% estimated 90-day mortality. MDF 11.3 and GAHS 6 are reassuring prognostically for possible hepatitis. - We will manage fluid status with HD, as below. - Continue rest of SBP and cirrhosis management as per primary team. #ESRD on HD M/W/ #Hyperphosphatemia Missed regularly scheduled Wednesday session on 07/20 07/21 3h session, 2K, ultrafiltration 2.8 L, Epogen 6000, no heparin ordered. 07/22 3h, 2K, UF 2L, Epogen 6000, no heparin ordered. - Will continue regularly scheduled M/W/F HD inpatient as needed. Next session 07/25 if patient is still admitted. - Renally dose medications - Strictly monitor I/Os - Daily renal panel #Chronic normocytic anemia secondary to ESRD - epoetin keith during HD #Hypertension - Continue hydralazine and clonidine. - Continue Valsartan 80mg daily, titrate up as tolerated. - Discontinue metoprolol which is dialyzable and likely contributing to patient's post-HD hypertension. Start labetalol as an alternative. Thank you for allowing us to participate in this patient's care. 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 Venegas. Note reviewed, agree with findings and recommendations. Antibiotics for SBP. clinically better Blood pressure on the higher side. Switch metoprolol to valsartan. Metoprolol is dialyzable. Spoke to primary team-will be discharged possibly tomorrow on p.o. antibiotics. Patient awaiting for living unrelated kidney transplant from his friend. He might need kidney liver transplant due to his findings of possible liver cirrhosis. Did discuss with patient to follow-up with hepatology center at [facility].
[2023-07-25] VITALS: BP 123/75; PULSE 93; RESP 18; TEMP 36.3; O2SAT 96
[2023-07-25 04:00] VITALS: BP 140/95; PULSE 93; RESP 18; TEMP 37.6; O2SAT 98
[2023-07-25 07:50] VITALS: BP 142/88; PULSE 90; RESP 18; TEMP 36.6; O2SAT 98
[2023-07-25] MEDS: cefTRIAXone 2 GM in SODIUM CHLORIDE 0.9% (P) 50 ML IV (08:23)
--- NOTE | 2023-07-25 11:29 | PD.RESDS ---
Planned Discharge Date 07/25/23 DS: Providers Provider Date of admission: 07/21/23 18:15 Primary care physician: Tiffanie Cifuentes([facility])DAVID Admitting Provider: Bob Shaw MD Attending Provider on Admission: John Wallis MD Consults: 07/21/23 18:21 Consult to Nephrology Stat Comment: ESRD m/w/f Consulting Provider: Bridget Tavarez 07/25/23 09:41 Consult to Gastroenterology Urgent Comment: Consulting Provider: Yojana Wolf Attending Provider on DC: Lee Suggs MD Discharging Provider: Lee Suggs MD DS: Diagnosis Problem List Completed Was Problem List Reviewed/Reconciled?: Yes Hospital Course Hospital Course Hospital course: #Sepsis secondary due to SBP's?resolved #SBP?resolved #Ascites in the setting of cirrhosis?resolved #ESRD # Anemia of chronic disease #Hyperbilirubinemia #cirrhosis #hypertension Mr Dang is a 37 YO M with history of hypertension and end-stage renal disease(secondary to hypertensive nephrosclerosis-under the care of Dr. Frausto in [place]) who presented to [facility] emergency department 07/21/2023 complaining of generalized swelling and worsening abdominal pain over the past week, associated with nausea, anorexia, chills and diaphoresis. The patient reports missing his Thursday 07/20 HD session due to his presenting complaint. On presentation, the patient was afebrile with temperature 100.1F, HR 89-106, RR 17-20, hypertensive 171/89mmHg. Initial labs demonstrated leukocytosis (WBC 13.8), anemia (hgb 10.0), with thrombocytosis (plt 518); chemistry remarkable for BUN 63 and sCr 9.2. LFTs with TB 2.1 and alk phos 531, AST and ALT <10. Procalcitonin elevated at 3.88. Patient was noted to have ascites and had a paracentesis done with 4 L of hazy fluid drained. Patient was then started on Rocephin 2 g for SBP. Patient has been on Rocephin since admission and today he is feeling much better and doing much better. Patient is hemodynamically stable and is being discharged on 1 more dose of p.o. ciprofloxacin to be taken after dialysis tomorrow. Patient is being discharged home and is to follow-up with his PCP within 1 week after discharge. Patient to continue with dialysis as scheduled. Patient be discharged with clonidine 0.2 mg twice daily, hydralazine 100 twice daily, and valsartan 80 mg daily. Patient is to get referral for GI by his PCP for further workup including EGD to rule out esophageal varices. Patient care was discussed with attending physician Dr. Bimal Suggs MD PGY2 Time Spent with Patient Time attestation: Total time spent providing and/or coordinating discharge services: Exam Vital Signs Temp Pulse Resp BP Pulse Ox O2 Del Method 97.9 F 90 18 142/88 H 98 Room Air 07/25/23 07:50 07/25/23 07:50 07/25/23 07:50 07/25/23 07:50 07/25/23 07:50 07/25/23 07:50 Narrative Exam General: AAO. NAD. Appears stated age. Cardiac: RRR. Normal S1 and S2. No murmur, rubs, or gallops. Resp: No increased work of breathing. No adventitious lung sounds. Abd: Soft, non-tender, nondistended. Active bowel sounds. Extrem: Atraumatic in appearance without deformity. AVF LUE. Skin: Warm, dry. Left AV fistula cannulated Psych: Appropriate mood with reactive and congruent affect. Discharge Plan Plan Patient Disposition: HOME (Self Care) Patient condition on transfer: Stable Prescriptions/Referrals Prescriptions/Med Rec: New valsartan 80 mg tablet 80 mg PO QDAY 30 Days Qty: 30 1RF ciprofloxacin HCl 250 mg tablet 250 mg PO QDAY Qty: 1 0RF Continued omeprazole 20 mg capsule,delayed release(DR/EC) 20 mg PO QDAY clonidine HCl 0.2 mg tablet 0.2 mg PO BID Patient Comments: TAKE 1 TABLET BY MOUTH TWICE A DAY hydralazine 100 mg Tablet 100 mg PO BID Discontinued metoprolol tartrate 100 mg tablet 100 mg PO BID Patient Comments: TAKE 1 TABLET BY MOUTH TWICE A DAY WITH FOOD Referrals: Tiffanie Cifuentes PA-C ([facility]) [Primary Care Provider] - Patient/Caregiver Discharge Instructions Discharge Activity: activity as tolerated Other Discharge Activity Instructions:: Follow-up with PCP within 1 week after discharge. Continue with hydralazine 100 twice daily Continue with valsartan 80 mg daily Continue with clonidine 0.2 mg twice daily GERD referral for GI doctor from PCP for EGD to assess for esophageal varices. Continue with dialysis as scheduled. Take 1 pill of ciprofloxacin tomorrow after dialysis. Education Materials: Understanding Post Sepsis Syndrome, How Your Kidneys Work, Anemia and Kidney Disease Print Language: Lebanese Stand Alone Forms: Patient Portal Info Letter Discharge Order Discharge Orders: Discharge (Routine); Ordered 07/25/23 Ordered By: Lee Suggs Quality Discharge Quality Measures VTE prophylaxis Attestestation MD Attestation Face to face evaluation was performed by me. I have personally seen and examined the patient. I discussed the assessment and plan with the entire medicine team, including Dr. Suggs. I reviewed available medical records, imaging studies, laboratory results. I agree with the above subjective data, objective findings, assessment and plan except as noted Sepsis, POA without septic shock, likely due to SBP Suspected SBP ESRD on HD Abdominal pain and distention Likely cirrhosis, with ascites Improved, wants to go home, received total of 4 doses of daily Rocephine and one day -1 dose of IV meropenem, so half day short of planned 5 days- wants to go home- will prescribe 1 tablet of ciprofloxacin to take tmr after HD session - this should complete his SBP course, Needs to follow up with PCP_ referral to hepatology- he has new diagnosis of hepatocllular disease- likely cirrhosis, might need further workup, including biopsy, might even need double transplant- with his kidney as well / He verbalized understanding of recommendations and willing to follow recs
--- NOTE | 2023-07-25 11:45 | ESPR_ITS ---
Documentation for date of: 07/25/23 Subjective Subjective Interval history: Mr Dang is a 37 YO M with history of hypertension and end-stage renal disease(secondary to hypertensive nephrosclerosis-under the care of Dr. Frausto in [place]) who presented to [facility] emergency department 07/21/2023 complaining of generalized swelling and worsening abdominal pain over the past week, associated with nausea, anorexia, chills and diaphoresis. The patient reports missing his Thursday 07/20 HD session due to his presenting complaint. On presentation, the patient was afebrile with temperature 100.1F, HR 89-106, RR 17-20, hypertensive 171/89mmHg. Initial labs demonstrated leukocytosis (WBC 13.8), anemia (hgb 10.0), with thrombocytosis (plt 518); chemistry remarkable for BUN 63 and sCr 9.2. LFTs with TB 2.1 and alk phos 531, AST and ALT <10. Procalcitonin elevated at 3.88. Nephrology service is consulted for management of anasarca with inpatient hemodialysis in setting of ESRD. 07/22/2023 Patient is seen on dialysis unit, resting comfortably. He is s/p 4.7L fluid removal during paracentesis and 50mg albumin replacement and broad spectrum antibiotic coverage with ceftriaxone 2g daily for spontaneous bacterial peritonitis, and reports abdominal pain is improved this morning. Peritoneal fluid analysis demonstrates 717 PMNs supporting SBP diagnosis, culture remains pending. Morning labs: WBC 12.2, Hgb 8.7, plt 583; Na 135, K 4.5, BUN 74, sCr 10.5, gluc 86. TB 1.8 and alkPhos 452. 07/23/2023 Patient is seen on medical floor, he is resting comfortably with his sister visiting at bedside. Blood cxs NG@48h, peritoneal cx still pending. He was reportedly feeling worse this morning but is now feeling much better s/p HD today, 3h session with 2L UF. Abdominal pain is improving. Blood pressure has been running high though patient did not take BP meds this morning, he noted frequently getting headaches with very high blood pressure at the end of his usual hemodialysis sessions. We will recommend against metoprolol which is dialyzable, and start valsartan. AM labs demonstrate WBC 13.1, hgb 10.1, plt 629; Na 135, K 4.5, BUN 43, sCr 7.8, glu 89. 07/24/2023 Mr Dang is seen on medical floor, he is resting comfortably. He reports feeling better with improvement to abdominal pain. Afebrile with stable vitals; blood pressure has been better controlled. Peritoneal fluid culture 07/20 remains pending. AM labs: WBC 12.2, Hgb 9.1, plt 616; Na 136, K 4.1, BUN 35, sCr 6.6, glu 80. 07/25/2023 patient currently seen in medical floor. His sister at bedside. Afebrile. He is going to be discharged home on p.o. antibiotics for SBP. Follow-up with the dialysis unit tomorrow for his scheduled dialysis. Review of Systems Review of Systems Narrative Review of Systems: CONSTITUTIONAL: Patient denies any fever, chills. HEENT: Denies any visual disturbances or hearing problems. CARDIOVASCULAR: Patient denies any chest pain, shortness of breath, swelling in the lower extremities. PULMONARY: Patient denies any shortness of breath, cough. GASTROINTESTINAL: Patient denies any abdominal pain, constipation, nausea, vomiting, diarrhea. GENITOURINARY: Patient denies any urinary symptoms of burning or frequency or hematuria, denies any form in the urine. SKIN: Denies any rash. MUSCULOSKELETAL: Denies any muscular skeletal problems of joint pains. NEUROLOGICAL: Denies any neurological problems of strokes, seizures or confusion. Denies any memory problems. PSYCHIATRIC: Denies any depression or anxiety. LYMPHATICS : No lymphadenopathy Exam Vital Signs Temp Pulse Resp BP Pulse Ox O2 Del Method 36.6 C 90 18 142/88 H 98 Room Air 07/25/23 07:50 07/25/23 07:50 07/25/23 07:50 07/25/23 07:50 07/25/23 07:50 07/25/23 07:50 Narrative Exam GENERAL APPEARANCE: Patient seems to be comfortable, adequately hydrated and nourished. HEENT: EOMI, PERRLA NECK: Neck supple, no JVD or bruit CARDIOVASCULAR: Heart regular, no murmurs LUNGS/CHEST: Chest clear to auscultation. No rales, rhonchi, wheezing ABDOMEN: Soft, nontender, nondistended. No masses. Normal bowel sounds. EXTREMITIES: No edema, clubbing or cyanosis. SKIN: Superficial excoriations and scarring noted of the skin left arm AV fistula MUSCULOSKELETAL: Musculoskeletal exam normal PSYCHIATRIC: Normal mood, affect LYMPHATICS: No lymphadenopathy noted NEUROLOGICAL : No neurological deficits Objective Labs 07/24/23 04:58 07/24/23 04:58 Assessment & Plan Additional Assessment & Plan Additional Plan: Mr Dang is a 37 YO M hx HTN and ESRD and likely new diagnosis of liver disease who presents with ascites and likely SBP, admitted for management of same. S/p paracentesis 07/20 with >700 PMNs, culture pending. On broad spectrum coverage with ceftriaxone 2g daily. Nephrology is consulted for management of inpatient HD and patient's fluid overload. #Anasarca / abdominal ascites #Sepsis #Spontaneous bacterial peritonitis, pending culture #Likely newly dx liver cirrhosis CT Abd/pelvis demonstrated significant ascites, liver mildly irregular in contour no focal liver lesions. Liver US demonstrated enlarged common bile duct 0.9 cm no definite stones and moderate hepatomegaly, cirrhosis, no focal liver lesions s/p paracentesis with 4.7L fluid removal and replacement of 50g albumin 07/20. pending fluid culture, blood cultures NG@48h. on ceftriaxone 2g daily broad spectrum empiric coverage MELD-Na 26 points portends 14-15% estimated 90-day mortality. MDF 11.3 and GAHS 6 are reassuring prognostically for possible hepatitis. - Continue rest of SBP and cirrhosis management as per primary team. #ESRD on HD M/W/ #Hyperphosphatemia Missed regularly scheduled Wednesday session on 07/20 07/21 3h session, 2K, ultrafiltration 2.8 L, Epogen 6000, no heparin ordered. 07/22 3h, 2K, UF 2L, Epogen 6000, no heparin ordered. - Will continue regularly scheduled M/W/F HD inpatient as needed. Next session 07/25 if patient is still admitted. - Renally dose medications - Strictly monitor I/Os - Daily renal panel #Chronic normocytic anemia secondary to ESRD - epoetin keith during HD #Hypertension - Continue hydralazine and clonidine. - Continue Valsartan 160mg daily, titrate up as tolerated. - Discontinue metoprolol which is dialyzable and likely contributing to patient's post-HD hypertension.
[2023-07-25 12:00] VITALS: BP 136/80; PULSE 94; RESP 18; TEMP 36.6; O2SAT 98
== END 2023-07-25 12:10 | disposition home or self-care (01) | DRG 871 ==
LOC: SERX 16:55 → SERHOLD 18:54 → S3SX 22:03
PROVIDERS: Internal Medicine; Physician Assistant; Student in an Organized Health Care Education/Training Program; Admitting Provider Internal Medicine; Emergency Provider Emergency Medicine; PCP Nurse Practitioner Family; Visit Provider Internal Medicine
DX: A41.9 Sepsis, unspecified organism (principal); K65.2 Spontaneous bacterial peritonitis; N18.6 End stage renal disease; R18.8 Other ascites; I12.0 Hypertensive chronic kidney disease with stage 5 chronic kidney disease or end stage renal disease; Z90.49 Acquired absence of other specified parts of digestive tract; K74.60 Unspecified cirrhosis of liver; D63.1 Anemia in chronic kidney disease; E83.39 Other disorders of phosphorus metabolism; Z99.2 Dependence on renal dialysis; D75.839 Thrombocytosis, unspecified; Z79.899 Other long term (current) drug therapy; E87.70 Fluid overload, unspecified
CPT/HCPCS: 36415; 74176; 76700; 76705; 80053; 80061; 80074; 81001; 82042; 82150; 82945; 83605; 83615; 83690; 83735; 84100; 84145; 84157; 84443; 85025; 85610; 85730; 86706; 87040; 87070; 87075; 87081; 87205; 87400; 87811; 89051; 96365; 96367; 99291; J0696; J1643; J2185; J7050; P9047; Q5105; A9270

== ENCOUNTER 2024-05-11 11:26 | Emergency (ER) | payer OTHER, MEDICAID, SELFPAY ==
[2024-05-11] VITALS (22 sets, daily range): BP systolic 144–182; BP diastolic 85–117; PULSE 83–102; RESP 15–20; TEMP 36.8–37.8; O2SAT 95–99; BMI 23.1
--- NOTE | 2024-05-11 11:47 | EDNOTE_ITS ---
ED Recheck Abnl Lab Rx-RME/HPI General Chief Complaint: Recheck/Abnormal Lab/Rx Stated Complaint: SENT BY DIALYSIS FOR LOW HGB 4.6; WEAKNESS Time Seen by Provider: 05/11/24 11:34 Arrival date/time: 05/11/24 11:26 RME / HPI RME / HPI narrative: 38-year-old male patient with significant history of hypertension, end-stage renal disease on hemodialysis, last hemodialysis was yesterday, was sent to us by PCP/branch associate teller for hemoglobin of 4.5 yesterday. Patient complained of generalized body weakness. Patient denies any vomiting blood denies any blood in the stool. Denies any abdominal pain. Patient denies any other complaints no medication was taken prior to arrival. Related Data Home Medications ?Medication ?Instructions ?Recorded ?Confirmed omeprazole 20 mg capsule,delayed 20 mg PO QDAY 12/10/21 07/21/23 release clonidine HCl 0.2 mg tablet 0.2 mg PO BID 08/31/22 07/21/23 hydralazine 100 mg tablet 100 mg PO BID 07/21/23 07/21/23 Previous Rx's ?Medication ?Instructions ?Recorded valsartan 80 mg tablet 80 mg PO QDAY 1 month #30 tabs 07/24/23 ciprofloxacin HCl 250 mg tablet 250 mg PO QDAY #1 tab 07/25/23 Allergies Allergy/AdvReac Type Severity Reaction Status Date / Time No Known Allergies Allergy Verified 05/11/24 11:27 Review of Systems Review of Systems Narrative Review of Systems: Review of system reviewed and within normal limits except mentioned in HPI ED Exam Narrative Physical exam: VITAL SIGNS: Reviewed. GENERAL APPEARANCE: Alert and interactive, follows commands, no acute distress, HEAD AND FACE: Non-traumatic. ENT: PERRL, pale conjunctiva, eyelid no trauma, Mucous membrane moist. NECK: Supple, nontender, no nuchal rigidity. CHEST: No tenderness, no crepitus, no paradoxical movement, no retractions. LUNGS: Clear, well ventilated, symmetric, no rales, no wheezing, no ronchi, no stridor, good breath sounds bilaterally. HEART: Regular rate, regular rhythm, no murmur, no gallops. ABDOMEN: Soft, positive bowel sounds, nondistended, no guarding, nontender, no rebound, no masses, RECTAL: Deferred. GENITAL: Deferred. NEUROLOGICAL: Gross motor function intact sensory function intact, Appropriate for age. MUSCULOSKELETAL: low back nontender, full range of motion. EXTREMITIES: Nontender, full range of motion. SKIN: Color pale, dry, no rash, no lacerations, no abrasions, no contusions. LYMPHATICS: Deferred. Course Quality Measures none Orders Category Date Time Status IV [Insert IV] NOW Care 05/11/24 11:53 Active Occult Blood,Stool (Nursing) ONCE Care 05/11/24 11:47 Active Transfuse,blood/blood products ONCE Care 05/11/24 11:47 Active Diet Renal Diet 05/11/24 Dinner Active CBC Stat Lab 05/11/24 11:52 Completed Comprehensive Metabolic Panel Stat Lab 05/11/24 11:52 Completed Partial Thromboplastin Time Stat Lab 05/11/24 11:52 Completed Prothrombin Time with INR Stat Lab 05/11/24 11:52 Completed Red Blood Cells Stat Lab 05/11/24 11:52 Completed Type and Screen Stat Lab 05/11/24 11:52 Completed Acetaminophen Tab [Tylenol ES Tab] Med 05/11/24 18:19 Discontinued 1,000 mg PO X1 ONE cloNIDine HCL [Catapres] Med 05/11/24 18:09 Discontinued 0.2 mg PO X1 ONE Vital Signs Vital signs: Vital Signs Temperature 98.8 F 05/11/24 11:41 Pulse Rate 101 H 05/11/24 11:41 Respiratory Rate 16 05/11/24 11:41 Blood Pressure 157/85 H 05/11/24 11:41 Pulse Oximetry (%) 98 05/11/24 11:41 Oxygen Delivery Method Room Air 05/11/24 11:41 Recheck / Abnormal Lab / Rx MDM Narrative MDM Narrative:: 38-year-old male patient with significant history of hypertension, end-stage renal disease on hemodialysis, last hemodialysis was yesterday, was sent to us by PCP/branch associate teller for hemoglobin of 4.5 yesterday. Patient complained of generalized body weakness. Patient denies any vomiting blood denies any blood in the stool. Denies any abdominal pain. Patient denies any other complaints no medication was taken prior to arrival Rectal exam was done by me, I did not notice any black tarry stool. Negative for occult blood Patient received 3 units of packed RBC. Patient tolerated procedure well. Patient data External records reviewed:: None Clinical information provided by:: none Social determinants that could affect healthcare access:: none Patient has the following chronic illnesses:: Hypertension, ESRD on hemodialysis How is presenting disease/condition affected by chronic disease/condition?: exacerbated by Evaluation data The following diagnostics were reviewed and interpreted by me:: lab results Lab and/or radiology exams considered but not ordered:: None Interpretation Summary: Patient's hemoglobin was noted to be 4.8, hematocrit of 14.2 CMP showed creatinine of 8.6, BUN of 60 potassium is normal Medications / Prescriptions Medications or Prescriptions considered but not ordered:: None Medication administrations:: Medication Administration History Discontinued Medications Acetaminophen (Acetaminophen 500 Mg Tablet) 1,000 mg PO X1 ONE Stop: 05/11/24 18:20 Last Admin: 05/11/24 18:23 Dose: 1,000 mg Documented By: AMBREEN Clonidine (Clonidine Hcl 0.1 Mg Tablet) 0.2 mg PO X1 ONE Stop: 05/11/24 18:10 Last Admin: 05/11/24 18:22 Dose: 0.2 mg Documented By: AMBREEN Clonidine, Tylenol, and 3 units of packed RBC Consultations Consultation(s) initiated? (list below): No Diagnosis Recheck Differential Diagnosis: other (Anemia of chronic disease, severe anemia, ESRD) Most likely diagnosis given after review of the tests above:: Anemia of chronic disease Admission Indicated Admission indicated?: not indicated Explain why admission is indicated or not indicated:: Stable Admission Request Was there a request for admission?: No Disposition Plan Disposition Plan: Discharge Discharge Attestation Discharge Attestation: The patient and all family members were given an opportunity to ask questions and understood the discharge instructions. Discharge instructions specifically effects, indications for sooner follow up or return to the emergency department, and the expected course of current diagnosis. Patient condition: Stable Discharge Plan Plan Patient Disposition: HOME (Self Care) Disposition Comment: stable Prescriptions/Referrals Prescriptions/Med Rec: No Action omeprazole 20 mg capsule,delayed release(DR/EC) 20 mg PO QDAY clonidine HCl 0.2 mg tablet 0.2 mg PO BID Patient Comments: TAKE 1 TABLET BY MOUTH TWICE A DAY hydralazine 100 mg Tablet 100 mg PO BID valsartan 80 mg tablet 80 mg PO QDAY 30 Days Qty: 30 1RF ciprofloxacin HCl 250 mg tablet 250 mg PO QDAY Qty: 1 0RF Referrals: Tiffanie Cifuentes PA- ([facility])C [Primary Care Provider] - In 1 week Problem List Clinical Impression: Anemia, Anemia in ESRD (end-stage renal disease) Patient/Caregiver Discharge Instructions Discharge Activity: activity as tolerated Education Materials: Anemia Additional Instructions: Thank you for the opportunity for serving you today. You are stable for discharged . You are advised to: Follow-up with your PCP in 1 to 2 days Return to ED for worsening of symptoms Print Language: Bhutanese Stand Alone Forms: Rosi Award Info., Patient Portal Info Letter RUBY/MAXIMUS Supervising Physician RUBY/MAXIMUS Supervising Physician: MD Fco
--- NOTE | 2024-05-11 11:56 | PC.NURSE ---
PT CAME IN DUE TO LOW HGB. PT STATES THAT HE WENT TO DIALYSIS YESTERDAY AND HAD BLOOD DRAWN. PT STATES THAT THEY CALLED HIM AND TOLD HIM TO COME IN FOR BLOOD TRANSFUSION. PT REPORTS FEELING WEAK BUT STATES THAT HE NORMALLY FEELS WEAK. PT PALE. IVL ESTABLISHED. PT PLACED ON CC MONITOR
[2024-05-11 12:15] LABS: Basophils # (Auto) 0.1 Thou/mm3 (0.0-0.2); Basophils % (Auto) 1 % (0-2.5); Eosinophils # (Auto) 0.5 Thou/mm3 (0.0-0.5); Eosinophils % (Auto) 5 % (0-10); Immature Granulocytes % (Auto) 0 % (0-0); Immature Granulocytes Auto 0.04 Thou/mm3 (0.00-0.00); Lymphocytes # (Auto) 1.8 Thou/mm3 (1.0-4.8); Lymphocytes % (Auto) 17 % (10-50); Mean Corpuscular HGB Conc 33.8 g/dl (31.0-37.0); Mean Corpuscular Volume 89 fL (80-100); Monocytes % (Auto) 9 % (0-12); Neutrophils # (Auto) 7.5 Thou/mm3 (1.8-7.7); Neutrophils % (Auto) 69 % (37-80); Nucleated Red Blood Cell % 0 /100 WBC (0); Platelet Count 259 Thou/mm3 (140-440); RDW Standard Deviation 51.1 fL (35.1-43.9); White Blood Count 10.9 Thou/mm3 (3.8-10.6)
[2024-05-11 12:22] LABS: Hematocrit 14.2 % (41.0-53.0)
[2024-05-11 12:28] LABS: INR 1.1 (0.9-1.3); Partial Thromboplastin Time 28.3 Seconds (22.0-36.0); Prothrombin Time 11.5 Seconds (9.0-12.2)
[2024-05-11 12:29] LABS: Alanine Aminotransferase 70 U/L (10-49); Albumin, Serum 4.9 gm/dL (3.5-5.0); Albumin/Globulin Ratio 1.6 (1.2-2.2); Alkaline Phosphatase 202 U/L (46-116); Anion Gap 10 (7-16); Aspartate Amino Transferase 24 U/L (0-34); BUN/Creatinine Ratio 7 Ratio (12-20); Bilirubin,Total 0.6 mg/dL (0.3-1.2); Blood Urea Nitrogen 60 mg/dL (9-23); Calcium 9.5 mg/dL (8.3-10.6); Calcium (Corrected) 9.5 mg/dL (8.5-10.1); Carbon Dioxide 30.6 mMol/L (20.0-31.0); Chloride 98 mMol/L (98-107); Creatinine (Component) 8.6 mg/dL (0.6-1.3); Estimated Creatinine Clearance 13.5 mL/min (>60); Glucose 97 mg/dL (74-106); Osmolality,Calculated 294 (275-295); Potassium 4.7 mMol/L (3.4-5.1); Sodium 139 mMol/L (136-145); Total Protein 7.9 gm/dL (5.7-8.2); eGFR 7 See Note
[2024-05-11 13:53] LABS: Hemoglobin 4.8 g/dL (13.5-16.0)
--- NOTE | 2024-05-11 17:30 | PC.NURSE ---
PT STATES THAT HE IS HUNGRY. FOOD GIVEN TO PT AT THIS TIME. FAMILY AT BEDSIDE
--- NOTE | 2024-05-11 18:20 | PC.NURSE ---
PT'S TEMP 100.0 ORAL AT THIS TIME. PT REPORTED THAT HE HAS BEEN SICK WITH COUGH FOR A FEW DAYS. PT IS ALSO RECEIVING BLOOD. INFORMED PROVIDER AT THIS TIME. NEW ORDERS RECEIVED
[2024-05-11] MEDS: cloNIDine HCL 0.1 MG TABLET 0.2 MG PO (18:22)
[2024-05-11] MEDS: ACETAMINOPHEN 500 MG TABLET 1000 MG PO (18:23)
--- NOTE | 2024-05-11 21:27 | PC.NURSE ---
Provider at the bedside.
[2024-05-12 00:05] VITALS: BP 153/99; PULSE 83; RESP 20; TEMP 36.8; O2SAT 95
== END 2024-05-12 00:05 | disposition home or self-care (01) ==
PROVIDERS: Nurse Practitioner Family; Emergency Provider Emergency Medicine; PCP Nurse Practitioner Family
DX: I12.0 Hypertensive chronic kidney disease with stage 5 chronic kidney disease or end stage renal disease (principal); N18.6 End stage renal disease; D63.1 Anemia in chronic kidney disease; Z99.2 Dependence on renal dialysis
CPT/HCPCS: 36415; 36430; 80053; 85025; 85610; 85730; 86850; 86900; 86901; 86923; 99285; P9016; A9270

== ENCOUNTER 2024-10-08 10:36 | Emergency (ER) | payer OTHER, MEDICAID, SELFPAY ==
[2024-10-08] VITALS (18 sets, daily range): BP systolic 135–212; BP diastolic 93–136; PULSE 61–99; RESP 14–24; TEMP 36.3–37.2; O2SAT 97–100; BMI 26.9
--- NOTE | 2024-10-08 11:02 | PD.EDRME ---
Rapid Medical Screening Exam RME Arrival date/time: 10/08/24 10:36 This is a case of 38-year-old male who came in in the emergency room due to 2 possible blood transfusion patient have history of chronic anemia secondary to end-stage renal disease patient is on hemodialysis patient states that they checked hemoglobin and it was low patient symptoms generalized weakness Chief Complaint: General Adult/Misc Complain Time Seen by Provider: 10/08/24 11:02 Vital signs: Vital Signs Temperature 98.9 F 10/08/24 10:54 Pulse Rate 99 10/08/24 10:54 Respiratory Rate 16 10/08/24 10:54 Blood Pressure 180/104 H 10/08/24 10:54 Pulse Oximetry (%) 97 10/08/24 10:54 Oxygen Delivery Method Room Air 10/08/24 10:54
[2024-10-08 11:36] LABS: Basophils # (Auto) 0.1 Thou/mm3 (0.0-0.2); Basophils % (Auto) 1 % (0-2.5); Eosinophils # (Auto) 0.4 Thou/mm3 (0.0-0.5); Eosinophils % (Auto) 4 % (0-10); Immature Granulocytes % (Auto) 1 % (0-0); Immature Granulocytes Auto 0.07 Thou/mm3 (0.00-0.00); Lymphocytes # (Auto) 2.4 Thou/mm3 (1.0-4.8); Lymphocytes % (Auto) 24 % (10-50); Mean Corpuscular HGB Conc 35.3 g/dl (31.0-37.0); Mean Corpuscular Hemoglobin 29.1 pg (25.0-35.0); Mean Corpuscular Volume 83 fL (80-100); Monocytes # (Auto) 0.6 Thou/mm3 (0.0-0.8); Monocytes % (Auto) 6 % (0-12); Neutrophils # (Auto) 6.4 Thou/mm3 (1.8-7.7); Neutrophils % (Auto) 64 % (37-80); Nucleated Red Blood Cell % 0 /100 WBC (0); Platelet Count 213 Thou/mm3 (140-440); RDW Standard Deviation 55.9 fL (35.1-43.9); Red Blood Count 1.89 Miln/mm3 (4.50-5.90); White Blood Count 9.9 Thou/mm3 (3.8-10.6)
[2024-10-08 11:56] LABS: Hematocrit 15.6 % (41.0-53.0); Hemoglobin 5.5 g/dL (13.5-16.0)
[2024-10-08 11:57] LABS: Path Review Blood Smear Sent to Pathologist
--- NOTE | 2024-10-08 12:09 | EDNOTE_ITS ---
ED General RME/HPI General Chief complaint: General Adult/Misc Complain Stated complaint: blood count low per pt Time Seen by Provider: 10/08/24 11:02 Arrival date/time: 10/08/24 10:36 RME / HPI RME / HPI narrative: 10/08/24 10:36 This is a case of 38-year-old male who came in in the emergency room due to possible blood transfusion patient have history of chronic anemia secondary to end-stage renal disease patient is on hemodialysis patient states that they checked hemoglobin and it was low patient symptoms generalized weakness. Patient is well-known to the ER comes in often for similar. States usually gets transfusions and goes home. Takes clonidine twice daily for blood pressure. Related Data Home Medications ?Medication ?Instructions ?Recorded ?Confirmed omeprazole 20 mg capsule,delayed 20 mg PO QDAY 2 07/21/23 release clonidine HCl 0.2 mg tablet 0.2 mg PO BID 08/31/22 hydralazine 100 mg tablet 100 mg PO BID 07/21/2307/20 Previous Rx's ?Medication ?Instructions ?Recorded valsartan 80 mg tablet 80 mg PO QDAY 1 month #30 ta bs 07/24/23 ciprofloxacin HCl 250 mg tablet 250 mg PO QDAY #1 tab 07/25/23 Allergies Allergy/AdvReac Type Severity Reaction Status Date / Time No Known Allergies Allergy Verified 10/08/24 10:37 Review of Systems Review of Systems Systems Reviewed: All systems reviewed, normal except as documented Constitutional Constitutional: Denies fever(s) Cardiovascular Cardiovascular: Denies chest pain and Denies dyspnea on exertion Respiratory Respiratory: Denies dyspnea on exertion Hematologic/Lymphatic Hematologic/Lymphatic: Reports easy bleeding and Reports easy bruising Course Quality Measures none Orders Category Date Time Status Insert IV NOW Care 10/08/24 14:59 Completed Transfuse,blood/blood products NOW Care 10/08/24 12:07 Active CBC Stat Lab 10/08/24 11:25 Completed CMP [Comprehensive Metabolic Panel] Stat Lab 10/08/24 11:25 Completed Path Review Blood Smear Stat Lab 10/08/24 11:25 Completed Red Blood Cells Stat Lab 10/08/24 11:25 Completed Type and Screen Stat Lab 10/08/24 11:25 Completed cloNIDine HCL [Catapres] Med 10/08/24 14:53 Discontinued 0.2 mg PO X1 ONE cloNIDine HCL [Catapres] Med 10/08/24 20:56 Discontinued 0.2 mg PO X1 ONE Vital Signs Vital signs: Vital Signs Temperature 98.9 F 10/08/24 10:54 Pulse Rate 99 10/08/24 10:54 Respiratory Rate 16 10/08/24 10:54 Blood Pressure 180/104 H 10/08/24 10:54 Pulse Oximetry (%) 97 10/08/24 10:54 Oxygen Delivery Method Room Air 10/08/24 10:54 Discharge Plan Plan Patient Disposition: HOME (Self Care) Discharge Disposition comment: f.u with pcp in 2-3days Prescriptions/Referrals Prescriptions/Med Rec: No Action omeprazole 20 mg capsule,delayed release(DR/EC) 20 mg PO QDAY clonidine HCl 0.2 mg tablet 0.2 mg PO BID Patient Comments: TAKE 1 TABLET BY MOUTH TWICE A DAY hydralazine 100 mg Tablet 100 mg PO BID valsartan 80 mg tablet 80 mg PO QDAY 30 Days Qty: 30 1RF ciprofloxacin HCl 250 mg tablet 250 mg PO QDAY Qty: 1 0RF [facility]Tiffanie PA-C [Primary Care Provider] - In 1 week Problem List Clinical Impression: End-stage renal disease (ESRD), Anemia, Transfusion history, HTN (hypertension) Patient/Caregiver Discharge Instructions Education Materials: Anemia, Hemodialysis Print Language: Turkmen Stand Alone Forms: Rosi Award Info., Patient Portal Info Letter PA/[employer] SPECIALIST Supervising Physician PA/[employer] Supervising Physician: Dr. jackson [facility] Narrative MDM hospital course: Patient remained stable to he received 3 units of packed red blood cells. For hemoglobin critically low. Advised follow-up with PCP return to ER symptoms worsen Clinical Information Provided by patient Medical Records Reviewed [facility] Meds/Rx Considered, not Ordered None Labs/Rad/Tests considered, not Ordered Describe details: Further workup considered however given history of same unlikely to change course of treatment today EKG EKG not done Lab Interpretation Lab(s) interpretation(s): End-stage renal based on CMP, critical anemia noted on CBC Medication Administration(s) Medication Administration History Discontinued Medications Clonidine (Clonidine Hcl 0.1 Mg Tablet) 0.2 mg PO X1 ONE Stop: 10/08/24 14:54 Last Admin: 10/08/24 15:02 Dose: 0.2 mg Documented By: RAOUL Clonidine (Clonidine Hcl 0.1 Mg Tablet) 0.2 mg PO X1 ONE Stop: 10/08/24 20:57 Last Admin: 10/08/24 21:06 Dose: 0.2 mg Documented By: EF Diagnosis Differential dx and/or dx ruled out: GI bleed, chronic anemia, ESRD causing anemia Most likely dx, and/or detailed dx discussion: Anemia of chronic disease End-stage renal disease Hypertension Dispositon Disposition: Discharge Home
[2024-10-08 12:14] LABS: Alanine Aminotransferase 46 U/L (10-49); Albumin, Serum 4.1 gm/dL (3.5-5.0); Albumin/Globulin Ratio 1.5 (1.2-2.2); Alkaline Phosphatase 166 U/L (46-116); Anion Gap 18 (7-16); BUN/Creatinine Ratio 9 Ratio (12-20); Bilirubin,Total 0.4 mg/dL (0.3-1.2); Calcium 7.7 mg/dL (8.3-10.6); Calcium (Corrected) 7.7 mg/dL (8.5-10.1); Chloride 99 mMol/L (98-107); Globulin 2.7 gm/dL (2.3-3.5); Glucose 127 mg/dL (74-106); Osmolality,Calculated 319 (275-295); Potassium 5.1 mMol/L (3.4-5.1); Sodium 143 mMol/L (136-145); Total Protein 6.8 gm/dL (5.7-8.2); eGFR 5 See Note
[2024-10-08 12:23] LABS: Blood Urea Nitrogen 104 mg/dL (9-23)
[2024-10-08 12:24] LABS: Creatinine (Component) 11.6 mg/dL (0.6-1.3)
[2024-10-08] MEDS: cloNIDine HCL 0.1 MG TABLET 0.2 MG PO ×2 (15:02→21:06)
--- NOTE | 2024-10-08 15:29 | PC.NURSE ---
BLOOD PRODUCTS INFUSING, VERFIED WITH HAILE MARCUM
--- NOTE | 2024-10-08 15:41 | PC.NURSE ---
PT DENIES SOB AND BACK PAIN. TRANSFUSION INCREASED TO 125ML/HR
== END 2024-10-08 22:48 | disposition home or self-care (01) ==
PROVIDERS: Nurse Practitioner Family; Emergency Provider Family Medicine; PCP Nurse Practitioner Family
DX: I12.0 Hypertensive chronic kidney disease with stage 5 chronic kidney disease or end stage renal disease (principal); N18.6 End stage renal disease; D63.1 Anemia in chronic kidney disease; Z99.2 Dependence on renal dialysis
CPT/HCPCS: 36415; 36430; 80053; 85025; 86850; 86900; 86901; 86923; 99285; P9016; A9270